=== PATIENT | male | born 1955 | race Caucasian/White ===

== ENCOUNTER 2020-03-29 08:03 | Day surgery (SDC) | payer MEDICARE, SELFPAY ==
[2020-03-24 11:24] VITALS: BMI 31.0
--- NOTE | 2020-03-28 10:23 | HO.ANESPROP2 ---
Documented by User: Anne Tabares 03/28/20 13:26 HPI - Anesthesia Eval Consult details Narrative: 65yo M for Colonoscopy Pt reports severe PONV after last colonoscopy. Done under CS. Rec'd 400 Fentanyl and 8 Versed. PMFSH Past Medical History Medical History Hyperlipidemia Seasonal allergies Surgical History Surgical History History of back surgery History of bilateral carpal tunnel release Hx of colonoscopy Hx of knee surgery Social History Social History Are you a primary palliative care nurse to a significant other at home: No Do you presently have visiting nurse or other home services: No Smoking Status: Former smoker Smoking Quit Date: In his 20s Second Hand Smoke Exposure: No Use of substances other than those prescribed or required for medical reasons: No Have you been hit, kicked, punched, or otherwise hurt by someone within the past year? If so, by whom?: No Advance Directives: No Advance Directives Information Provided: No Advance Directives on File: No Recently lost weight without trying: No Meds Allergies Allergy/AdvReac Type Severity Reaction Status Date / Time fentanyl AdvReac Nausea and Verified 03/24/20 11:21 Vomiting meperidine [From Demerol] AdvReac Nausea and Verified 03/24/20 11:21 Vomiting Home Medications Medication Instructions Recorded Confirmed Type aspirin [Aspir-81] 81 mg PO DAILY 03/24/20 03/24/20 History lactobacillus combination no.4 mmu cells PO DAILY 03/24/20 History [Probiotic] simvastatin 20 mg PO DAILY 03/24/20 03/24/20 History Exam Exam Date and Time: March 28, 2020 1023 Height,Weight and Vital Signs: Height 5 ft 7.5 in Weight 91.172 kg Assessment and Plan Final Anesthetic Review Final Preanesthetic Review: Consent Obtained/Reviewed Documented by User: Carito Mariscal 03/29/20 09:43 PMFSH Past Medical History Medical History Hyperlipidemia Seasonal allergies Surgical History Surgical History History of back surgery History of bilateral carpal tunnel release Hx of colonoscopy Hx of knee surgery Social History Social History Are you a primary palliative care nurse to a significant other at home: No Do you presently have visiting nurse or other home services: No Smoking Status: Former smoker Smoking Quit Date: In his 20s Second Hand Smoke Exposure: No Use of substances other than those prescribed or required for medical reasons: No Have you been hit, kicked, punched, or otherwise hurt by someone within the past year? If so, by whom?: No Advance Directives: No Advance Directives Information Provided: No Advance Directives on File: No Recently lost weight without trying: No Meds Allergies Allergy/AdvReac Type Severity Reaction Status Date / Time fentanyl AdvReac Nausea and Verified 03/24/20 11:21 Vomiting meperidine [From Demerol] AdvReac Nausea and Verified 03/24/20 11:21 Vomiting Home Medications Medication Instructions Recorded Confirmed Type aspirin [Aspir-81] 81 mg PO DAILY 03/24/20 03/24/20 History lactobacillus combination no.4 mmu cells PO DAILY 03/24/20 History [Probiotic] simvastatin 20 mg PO DAILY 03/24/20 03/24/20 History Exam Airway Mallampati Class: I TM Dist: >3cm Neck ROM: Full Heart: RRR Lungs: CTA BL Assessment and Plan Assessment Anesthesia Assessment: Anesthesia Plan Discussed and Chart Reviewed Final Anesthetic Review NPO: Yes ASA Class: II Final Preanesthetic Review: Meds/Allgs Chart Reviewed and Consent Obtained/Reviewed Patient Risk: Intermediate Procedure Risk: Intermediate Anesthetic Plan Anesthetic Plan: MAC: Disposition: Standard PACU
[2020-03-29] MEDS: Lactated Ringers 1,000 ML 100 ML IVCONT (08:52)
[2020-03-29 09:00] VITALS: BP 123/81; PULSE 69; RESP 18; TEMP 35.9; O2SAT 95
--- NOTE | 2020-03-29 10:48 | PM.OP ---
Brief Operative Note Date of Service: 03/29/20 Pre-op diagnosis: Screening, Family history of colon cancer Post-op diagnosis: other (Diverticulosis, Internal hemorrhoids) Procedure: Colonoscopy to cecum and TI Surgeon: Marbin Garcia Anesthesia: MAC Estimated blood loss (mL): 0 Pathology: none sent Condition: stable Disposition: PACU
[2020-03-29 10:51] VITALS: BP 112/72; PULSE 71; RESP 16; TEMP 37; O2SAT 96
[2020-03-29 11:06] VITALS: BP 113/76; PULSE 60; RESP 18; O2SAT 100
[2020-03-29] MEDS: ondansetron HCL 4 MG/2 ML VIAL IVPUSH (11:09)
[2020-03-29 11:21] VITALS: BP 125/75; PULSE 57; RESP 20; O2SAT 97
[2020-03-29 11:37] VITALS: BP 127/78; PULSE 59; RESP 20; TEMP 36.9; O2SAT 98
--- NOTE | 2020-03-29 11:56 | HO.POSTANES ---
Post Anesthesia Evaluation Post Anesthesia Evaluation Vital Signs: Vital Signs Temp Pulse Resp BP Pulse Ox 03/29/20 11:37 98.5 F 59 20 127/78 98 03/29/20 11:21 57 20 125/75 97 03/29/20 11:06 60 18 113/76 100 03/29/20 10:51 98.6 F 71 16 112/72 96 03/29/20 09:00 96.7 F L 69 18 123/81 95 Anesthesia: Monitored Mental Status: Awake Pain Control: Satisfactory Nausea/Vomiting: None Hydration: Adequate Anesthesia-Related Issues: No Anes. Related Issues
--- NOTE | 2020-03-29 12:23 | OP_ITS ---
SURGEON: Marbin Garcia MD INDICATIONS: The patient presents for evaluation of colorectal cancer screening and family history of colon cancer. Full consent obtained from him for this, including risks of bleeding and perforation. PREOPERATIVE DIAGNOSIS: Colorectal cancer screening and family history of colon cancer. POSTOPERATIVE DIAGNOSIS: Colorectal cancer screening and family history of colon cancer, diverticulosis, and internal hemorrhoids. PROCEDURE PERFORMED: Colonoscopy to the cecum and terminal ileum. ESTIMATED BLOOD LOSS: COMPLICATIONS: ANESTHESIA: Monitored anesthesia care. ASSISTANTS: SPECIMENS: DESCRIPTION OF PROCEDURE: The patient was placed in the left lateral decubitus position. The digital rectal exam revealed no abnormalities. The Olympus video pediatric colonoscope was then entered into the rectum and advanced easily to the cecum. Once in the cecum, identified normal-appearing cecal pouch at the appendiceal orifice and a normal-appearing ileocecal valve. The terminal ileum was cannulated and appeared normal. Scope was withdrawn back in the colon. The entire cecum and ileocecal valve appeared normal. The scope was slowly withdrawn, assessing all mucosal surfaces carefully. Preparation was excellent. I did not visualize any sign of polyps, colitis, nor angiodysplasia. There was a moderate amount of sigmoid diverticulosis. In the rectum, scope was retroflexed visualizing small internal hemorrhoids, but no other pathology. The rectal mucosa appeared normal. The scope was straightened and withdrawn from the patient. He tolerated the procedure well and was returned to the recovery area in stable condition. IMPRESSION: 1. Diverticulosis. 2. Internal hemorrhoids. PLAN: Given the patient's negative exam and family history of colon cancer in his father. I would recommend a followup colonoscopy in 5 years for further screening and surveillance. He was advised they could resume aspirin today. He will otherwise see me on a p.r.n. basis. This has been discussed with his . MD SANDRA Yu/STEPHANY / [id number]
== END 2020-03-29 12:00 | disposition home or self-care (01) ==
PROVIDERS: PCP Internal Medicine; Visit Provider Internal Medicine
PROC: 0DJD8ZZ Inspection of Lower Intestinal Tract, Via Natural or Artificial Opening Endoscopic (ICD-10-PCS; CPT 45378; principal; 2020-03-29 09:30)
DX: Z12.11 Encounter for screening for malignant neoplasm of colon (principal); K57.30 Diverticulosis of large intestine without perforation or abscess without bleeding; K64.8 Other hemorrhoids; Z80.0 Family history of malignant neoplasm of digestive organs
CPT/HCPCS: G0105; J2405

== ENCOUNTER → 2022-02-08 08:54 | Outpatient (BNVA) | payer MEDICARE, SELFPAY | PROVIDERS: PCP Internal Medicine; Visit Provider Urology | DX: R97.20 Elevated prostate specific antigen [PSA] (principal); N40.1 Benign prostatic hyperplasia with lower urinary tract symptoms; N13.8 Other obstructive and reflux uropathy; E78.5 Hyperlipidemia, unspecified; Z80.42 Family history of malignant neoplasm of prostate | CPT/HCPCS: 51798; 99202 ==

== ENCOUNTER 2022-02-18 07:54 | Outpatient (REF) | payer MEDICARE, SELFPAY ==
[2022-02-23 13:06] LABS: PSA, Ultra Sensitive 3.97 ng/mL
== END 2022-02-18 07:55 | disposition home or self-care (01) ==
LOC: HO.10HDL 07:54
PROVIDERS: Visit Provider Urology
DX: Z12.5 Encounter for screening for malignant neoplasm of prostate (principal); R97.20 Elevated prostate specific antigen [PSA]; N40.1 Benign prostatic hyperplasia with lower urinary tract symptoms
CPT/HCPCS: 36415; 84153

== ENCOUNTER → 2022-02-22 10:41 | Outpatient (BNVA) | payer MEDICARE, SELFPAY | PROVIDERS: PCP Internal Medicine; Visit Provider Urology | DX: R97.20 Elevated prostate specific antigen [PSA] (principal); N40.1 Benign prostatic hyperplasia with lower urinary tract symptoms; N13.8 Other obstructive and reflux uropathy; Z80.42 Family history of malignant neoplasm of prostate | CPT/HCPCS: 99212 ==

== ENCOUNTER → 2022-03-01 13:15 | Outpatient (BNVA) | payer MEDICARE, SELFPAY | PROVIDERS: Visit Provider Urology | DX: R97.20 Elevated prostate specific antigen [PSA] (principal); N40.0 Benign prostatic hyperplasia without lower urinary tract symptoms | CPT/HCPCS: Q3014 ==

== ENCOUNTER 2022-03-11 07:26 | Outpatient (REF) | payer MEDICARE, SELFPAY ==
[2022-03-11 08:01] VITALS: BMI 29.2
[2022-03-11 08:02] VITALS: BP 154/78; PULSE 76; RESP 16; TEMP 36.4; O2SAT 96
[2022-03-11 08:40] VITALS: BP 118/75; PULSE 82; RESP 16; O2SAT 97
--- NOTE | 2022-03-11 09:11 | W.PM.OPN ---
Operative Note Operative Note Date of Service: 03/11/22 Narrative: PreOperative Diagnosis:? ? Elevated PSA Post Operative Diagnosis:??Elevated PSA Procedure:?1. Transrectal ultrasound guided biopsy of the prostate 12 core 2. Transrectal ultrasound measurement of prostate 3. Transrectal ultrasound guided pudendal nerve block Surgeon:?Dr Candice Raymond Anesthesia:? Local Indications for procedure: Elevated PSA Procedure:After informed consent was verified the patient was brought into the procedure room and placed on the procedure table in left lateral position. Patient identity confirmed. Preoperative antibiotics confirmed. Safety pause time-out performed. Digital rectal exam performed to dilate rectal sphincter, iodine mixed with lubricant jelly 30 cc placed per rectum. Ultrasound probe was placed per rectum. The prostate was visualized. The prostate was measured height 3.51 cm, width 5.51 cm, length 4.51 cm with a volume of 45.7mL. An ultrasound guided pudendal nerve block was performed using 10 cc of 1% lidocaine a 12 core biopsy was performed from the left base, left mid, left apex and right base, mid, apex; 2 biopsies from each section. The ultrasound probe was removed and digital palpation of the prostate for 60 seconds for hemostasis was performed. The patient tolerated the procedure well. The patient was able to ambulate and use the bathroom after 5 minutes. The patient is instructed to complete his antibiotics and to call for any concerns. Complications: None
== END 2022-03-11 07:27 | disposition home or self-care (01) ==
LOC: HO.MS 07:26
PROVIDERS: PCP Internal Medicine; Visit Provider Urology
PROC: (CPT 55700; principal; 2022-03-11 08:00)
DX: R97.20 Elevated prostate specific antigen [PSA] (principal); Z80.42 Family history of malignant neoplasm of prostate; N40.1 Benign prostatic hyperplasia with lower urinary tract symptoms; N39.43 Post-void dribbling; E78.5 Hyperlipidemia, unspecified; J30.2 Other seasonal allergic rhinitis; Z79.899 Other long term (current) drug therapy; Z88.8 Allergy status to other drugs, medicaments and biological substances
CPT/HCPCS: 55700; 76942; 88305; 88344

== ENCOUNTER → 2022-03-20 08:31 | Outpatient (BNVA) | payer MEDICARE, SELFPAY | PROVIDERS: PCP Internal Medicine; Visit Provider Urology | DX: R97.20 Elevated prostate specific antigen [PSA] (principal); N40.1 Benign prostatic hyperplasia with lower urinary tract symptoms | CPT/HCPCS: Q3014 ==

== ENCOUNTER 2022-08-19 08:50 | Outpatient (REF) | payer MEDICARE, SELFPAY | END 2022-08-19 08:51 | disposition home or self-care (01) | LOC: HO.10HDL 08:50 | PROVIDERS: Visit Provider Urology | DX: Z12.5 Encounter for screening for malignant neoplasm of prostate (principal); N40.1 Benign prostatic hyperplasia with lower urinary tract symptoms; R97.20 Elevated prostate specific antigen [PSA] | CPT/HCPCS: 36415; 84153 ==

== ENCOUNTER → 2022-08-26 08:25 | Outpatient (BNVA) | payer MEDICARE, SELFPAY | PROVIDERS: PCP Internal Medicine; Visit Provider Urology | DX: R97.20 Elevated prostate specific antigen [PSA] (principal); N40.0 Benign prostatic hyperplasia without lower urinary tract symptoms | CPT/HCPCS: 51798; 99212 ==

== ENCOUNTER 2023-02-17 08:04 | Outpatient (REF) | payer MEDICARE, SELFPAY ==
[2023-02-17 11:47] LABS: Prostate Specific Antigen 1.41 ng/mL (<0.05-4.0)
== END 2023-02-17 08:05 | disposition home or self-care (01) ==
LOC: HO.10HDL 08:04
PROVIDERS: Visit Provider Urology
DX: N40.1 Benign prostatic hyperplasia with lower urinary tract symptoms (principal); Z12.5 Encounter for screening for malignant neoplasm of prostate
CPT/HCPCS: 36415; 84153

== ENCOUNTER 2023-02-24 08:27 | Outpatient (AMB) | payer MEDICARE, SELFPAY ==
--- NOTE | 2023-02-24 08:09 | MHC.OFFVIS ---
Intake Intake Visit Reasons: 6m/PSA Intake Note: Patient is present for PSA medications: Finasteride (Tadalafil is not working for patient. 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: No Accompanied by: Self / Same As Patient Allergies fentanyl Adverse Reaction (Verified 02/24/23 08:30) Nausea and Vomiting meperidine [From Demerol] Adverse Reaction (Verified 02/24/23 08:30) Nausea and Vomiting Medication List - Last Reconciled 02/24/23 by Candice Raymond MD aspirin 81 mg PO DAILY finasteride (Proscar) 5 mg PO DAILY PRN 90 days lactobacillus combination no.4 (Probiotic) mmu cells PO DAILY meclizine 25 mg PO TID PRN simvastatin 20 mg PO DAILY HPI HPI Comments History of Present Illness Details Donn is a 67-year-old male who presents to the office for discussion of PSA test results. 02/24/2023-- He is followed today for elevated PSA and BPH. He was last seen by me on 08/26/2022. He has a family history of prostate cancer. His father was diagnosed with prostate cancer at the age of 70s. Patient has had prostate biopsy done on 03/11/22 which was benign. I reviewed the PSA results from revealed 2.30 ng/mL, and from 01/21/2023 revealed 1.4 ng/mL. He states that he has been compliant with Proscar daily. He stopped taking tadalafil, because he states that when he is on medication he was getting aura . He states that his urinary flow is good. He is getting up 1 time at night to urinate. Review of chart: Review of PSA: PSA on 02/18/2022 is 3.97. PSA results. PSA 11/21/2021 results 3.98. The patient had prostate biopsy on 03/11/22-- no malignancy reported. 02/24/23: Evaluation today--UA--Evaluation today-- Blood: negative, leukocytes-- negative. Bladder scan PVR: 0 mL. 02/24/2023: Plan: Will continue Proscar daily. Follow-up in 1 year PSA prior. [facility] Medical History Hyperlipidemia Seasonal allergies Surgical History History of back surgery History of bilateral carpal tunnel release Hx of knee surgery Hx of colonoscopy Social History Are you a primary customer care associate to a significant other at home: No Do you presently have visiting nurse or other home services: No Second Hand Smoke Exposure: No Review of Systems Const All systems reviewed & are unremarkable except as noted in HPI and below Reports no additional complaints Eyes Reports no additional complaints ENT Denies neck pain Card Denies leg edema Resp Denies cough GI Denies constipation Musc Reports no additional complaints and Denies neck pain Skin/Breast Denies rash and Denies unusual bruising Neuro Reports no additional complaints Psych Reports no additional complaints Endo Reports no additional complaints Srinivas/Lymph Reports no additional complaints Aller/Immun Reports no additional complaints Office Procedures Post Void Residual Post Residual Void Post Void Residual (PVR): 0 81835-Hwpy Void Residual by ultrasound Results AMB Urinalysis, Automated UA Leukoctes 0 [place]/uL Last Edit by ROMULO Bruno on 02/24/23 08:43 UA Nitrite Negative Last Edit by ROMULO Bruno on 02/24/23 08:43 UA Urobilinogen 0.2 mg/dL Last Edit by ROMULO Bruno on 02/24/23 08:43 UA Protein 0 mg/dL Last Edit by ROMULO Bruno on 02/24/23 08:43 UA pH 6.0 Last Edit by ROMULO Bruno on 02/24/23 08:43 UA Blood 0 [place]/uL Last Edit by ROMULO Bruno on 02/24/23 08:43 UA Specific [place] 1.010 Last Edit by ROMULO Bruno on 02/24/23 08:43 UA Ketone Negative Last Edit by ROMULO Bruno on 02/24/23 08:43 UA Bilirubin 0 mg/dL Last Edit by ROMULO Bruno on 02/24/23 08:43 UA Glucose 0 mg/dL Last Edit by ROMULO Bruno on 02/24/23 08:43 Results Reviewed Results Reviewed: Laboratory Last Values Urine pH (Auto) 6.0 02/24/23 08:41 Specific [place] (Auto) 1.010 02/24/23 08:41 Urine Protein (Auto) 0 mg/dL 02/24/23 08:41 Glucose (UA)(Auto) 0 mg/dL 02/24/23 08:41 Urine Ketones (Auto) Negative 02/24/23 08:41 Urine Blood (Auto) 0 [place]/uL 02/24/23 08:41 Urine Nitrite (Auto) Negative 02/24/23 08:41 Urine Bilirubin (Auto) 0 mg/dL 02/24/23 08:41 Urine Urobilinogen (Auto) 0.2 mg/dL 02/24/23 08:41 Leukocyte Esterase (Auto) 0 [place]/uL 02/24/23 08:41 Assessment & Plan Assessment & Plan (1) Elevated PSA: Code(s): R97.20 - Elevated prostate specific antigen [PSA] (2) BPH loc w urin obs/LUTS: Code(s): N40.1 - Benign prostatic hyperplasia with lower urinary tract symptoms (3) Family history of prostate cancer in father: Code(s): Z80.42 - Family history of malignant neoplasm of prostate Plan Will continue Proscar daily. Follow-up in 1 year PSA prior. Orders: Orders Prostate Specific Antigen 02/17/23 N40.1 - Benign prostatic hyperplasia with lower urinary tract symptoms AMB Urinalysis Automated Today Z13.9 - Encounter for screening, unspecified PSA,Total (Free>4and<10) 10 Months N40.1 - Benign prostatic hyperplasia with lower urinary tract symptoms, R97.20 - Elevated prostate specific antigen [PSA], Z80.42 - Family history of malignant neoplasm of prostate AMB Post Void Residual by ultrasound Today N39.8 - Other specified disorders of urinary system Medications: Changed From finasteride (Proscar) 5 mg PO DAILY 90 days PRN 90 tabs 3RF prostate To finasteride (Proscar) 5 mg PO DAILY 90 days 90 tabs 3RF prostate Patient Instructions: The patient had an opportunity to ask questions regarding treatment plan. All questions were answered. Imaging, Laboratory studies and physical exam results were discussed and reviewed in detail. No major barriers to understanding were identified. The patient expressed understanding and agreement with the above treatment plan. The patient is aware they should contact our office by phone for worsening of their current condition or the appearance of new symptoms. Compliance is encouraged with any medications and followup testing that is ordered. It is a privilege to be allowed the opportunity to participate in the urologic care of your patient. If you have any questions or concerns regarding treatment for the above conditions please do not hesitate to contact me. The office telephone contact is [phone]. This note is constructed in part using voice recognition software. While every effort has been made to ensure accuracy head of digital advertising & integration errors may have been included. Yours sincerely, Candice Raymond MD Coding Level of Care Code Est Pt Level 3 (10341) Diagnoses Elevated PSA R97.20 BPH loc w urin obs/LUTS N40.1 Family history of prostate cancer in father Z80.42 CPT Codes Post Residual Void - PVR CPT Code: 93472-Pbzo Void Residual by ultrasound ([id number])
== END 2023-02-24 08:52 | disposition home or self-care (01) ==
PROVIDERS: Visit Provider Urology
DX: R97.20 Elevated prostate specific antigen [PSA] (principal); N40.1 Benign prostatic hyperplasia with lower urinary tract symptoms; Z80.42 Family history of malignant neoplasm of prostate; Z13.9 Encounter for screening, unspecified
CPT/HCPCS: 99213

== ENCOUNTER → 2023-02-24 08:27 | Outpatient (BNVA) | payer MEDICARE, SELFPAY | PROVIDERS: Visit Provider Urology | DX: R97.20 Elevated prostate specific antigen [PSA] (principal); N40.1 Benign prostatic hyperplasia with lower urinary tract symptoms; N13.8 Other obstructive and reflux uropathy; Z80.42 Family history of malignant neoplasm of prostate | CPT/HCPCS: 51798; 81003; 99212 ==

== ENCOUNTER 2024-03-06 09:22 | Outpatient (AMB) | payer MEDICARE, SELFPAY ==
--- NOTE | 2024-03-06 09:23 | AM.OFFWIN_ITS ---
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 Patient was cutting meat with a sharp knife about an hour ago. The laceration is Deep and bleeding. Patient will receive Tdap. PFSH Medical History Hyperlipidemia Seasonal allergies Surgical History History of back surgery History of bilateral carpal tunnel release Hx of knee surgery Hx of colonoscopy Social History Are you a primary farm or ranch animal caretaker to a significant other at home: No Do you presently have visiting nurse or other home services: No Patient Tobacco Use Status: Never used Tobacco Second Hand Smoke Exposure: No Review of Systems Const All systems reviewed & are unremarkable except as noted in HPI and below Physical Exam Vital Signs: Last Vital Signs Pulse 72 03/06/24 09:29 BP 140/80 H 03/06/24 09:29 Pulse Ox 98 03/06/24 09:29 Oxygen Delivery Method Room Air 03/06/24 09:29 Const General: cooperative and no acute distress Orientation/consciousness: patient oriented x3 Skin Other: 2 cm laceration left Pinky, deep to the bone. Neuro General: patient oriented x3 Extrem Left upper extremity: hand Hand/finger images: 2 1. 2 cm laceration left Pinky, deep to the bone. 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 Washed the wound with saline and wrapped with Kerlix roll T-dap given to patient today. Coding Level of Care Code Est Pt Level 3 (11913) Diagnoses Deep laceration of finger S61.219A Time Spent (min) 15
[2024-03-06 09:29] VITALS: BP 140/80; PULSE 72; O2SAT 98
== END 2024-03-06 10:11 | disposition home or self-care (01) ==
PROVIDERS: PCP Internal Medicine; Visit Provider Nurse Practitioner Family
DX: S61.217A Laceration without foreign body of left little finger without damage to nail, initial encounter (principal)

== ENCOUNTER → 2024-03-06 09:22 | Outpatient (BNVA) | payer MEDICARE, SELFPAY | PROVIDERS: PCP Internal Medicine; Visit Provider Nurse Practitioner Family ==

== ENCOUNTER 2024-03-06 09:59 | Emergency (ER) | payer MEDICARE, SELFPAY ==
--- NOTE | ~2024-03-06 | XR_ITS ---
EXAMINATION: XR FINGER, LEFT CLINICAL INFORMATION: Fifth digit laceration. COMPARISON: Left hand radiograph dated 07/09/2016. TECHNIQUE: PA view of the left hand as well as oblique and lateral views of the left small finger. FINDINGS: Dorsal and ulnar soft tissue defect, consistent with laceration. Along the radial side of the fifth proximal phalanx there is a tiny linear density measuring up to 0.2 cm which could represent a small foreign body. No acute fracture or dislocation. No concerning lytic or blastic osseous lesion. Severe joint space narrowing with marginal osteophytes at the triscaphe and first carpometacarpal joint with more mild osteoarthritis throughout the metacarpophalangeal and interphalangeal joints. XR/XR finger LT min 2V IMPRESSION: 1. Soft tissue laceration along the dorsal and ulnar aspect of the fifth proximal phalanx. Tiny linear density measuring up to 0.2 cm which could represent a small foreign body. 2. No acute fracture or dislocation. 3. 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 Electronically signed by: Rupert Guerrero MD 03/06/2024 11:00 AM [facility]
[2024-03-06 10:07] VITALS: BP 134/77; PULSE 75; RESP 16; TEMP 36.9; O2SAT 96; BMI 31.0
--- NOTE | 2024-03-06 10:44 | ED_ITS ---
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 He is not on AC. He was initially evaluated at . His tetanus was updated there and he was sent to the ED for imaging and laceration repair. He denies any pain at present. Denies difficulty moving the finger. Bleeding controlled on arrival to ED. No other concerns at present. Related Data Home Medications ?Medication ?Instructions ?Recorded ?Confirmed aspirin 81 mg tablet,delayed 81 mg PO DAILY 03/24/20 02/24/23 release lactobacillus combination no.4 3 mmu cells PO DAILY 03/24/20 02/24/23 billion cell capsule (Probiotic) simvastatin 20 mg tablet 20 mg PO DAILY 03/24/20 02/24/23 Previous Rx's ?Medication ?Instructions ?Recorded finasteride 5 mg tablet (Proscar) 5 mg PO DAILY prostate 90 days #90 02/24/23 tabs Allergies Allergy/AdvReac Type Severity Reaction Status Date / Time fentanyl AdvReac Nausea and Verified 03/06/24 10:09 Vomiting meperidine [From Demerol] AdvReac Nausea and Verified 03/06/24 10:09 Vomiting Review of Systems Review of Systems: Constitutional: No fever, chills, fatigue, night sweats, weight changes ENT/Mouth: No ear pain, hearing loss, nasal congestion, sinus pain, rhinorrhea, sore throat Eyes: No eye pain, swelling, redness, vision changes, discharge Cardio: No chest pain, palpitations, [place], orthopnea, peripheral edema Pulm: No SOB, cough, sputum, wheezing, dyspnea, hemoptysis GI: No nausea, vomiting, hematemesis, abdominal pain, diarrhea, constipation, hematochezia, melena : No irregular bleeding, dysuria, frequency, urgency, hesitancy, hematuria, flank pain, urinary flow changes, urinary incontinence or retention MSK: No back pain, neck pain, joint pain, myalgias Skin: No lesions, rashes, +laceration to left 5th digit Neuro: No weakness, numbness, paresthesias, LOC, dizziness, headache Psych: No anxiety/panic, depression, SI/HI, AH/VH All other systems reviewed and are negative. [facility] Past Medical History Attestation statement: The following information was validated with the patient. Source: old records reviewed and nursing notes reviewed Medical History Hyperlipidemia Seasonal allergies Surgical History History of back surgery History of bilateral carpal tunnel release Hx of knee surgery Hx of colonoscopy Social History Social History Are you a primary healthcare account manager to a significant other at home: No Do you presently have visiting nurse or other home services: No Patient Tobacco Use Status: Never used Tobacco Second Hand Smoke Exposure: No Advance Directives: No Advance Directives Information Provided: Yes Physical Exam Vital Signs: Vital Signs: Last Vital Signs Temp 98.5 F 03/06/24 11:33 Pulse 75 03/06/24 11:33 Resp 16 03/06/24 11:33 BP 134/77 03/06/24 11:33 Pulse Ox 96 03/06/24 11:33 O2 Del Method Room Air 03/06/24 11:33 BMI result Body Mass Index 31.0 vitals stable General: Well appearing, in no acute distress. Skin: see below Head: Normocephalic, atraumatic. EENT: Hearing is intact b/l. Conjunctiva clear.PERRLA. EOM intact. Moist mucous membranes.? Cardiac: Chest wall symmetric. RRR. No MRG. No JVD. Lungs: Normal respiratory effort without accessory muscle use Ext: +2 cm linear superficial laceration noted to ulnar/ dorsal aspect of left 5th PIP. FROM to 5th MCP/ PIP/ DIP. no active bleeding. no FB. no visible tendon/ ligament/ bone. strength intact. finger to thumb opposition intact. production material coordinator strength intact. 2+ radial /ulnar pulse intact. sensation intact. Neuro: AOx3. Normal speech. Ambulating with steady gait. Psych: Appropriate mood and affect. Responds appropriately to questions. Course Course Course Narrative: xr left 5th digit does not show fracture. it shows possible 0.2 cm linear density. wound irrigated extensively with iodine/saline. no FB appreciated. 6 sutures placed after digital block. patient tolerated procedure well. bleeding controlled. advised to return in 10-14 days for suture removal. Patient has remained stable throughout ED visit today. Discussed worrisome signs and sympto ms and when to return to the ED. All questions answered at this time. Patient is agreeable with disposition and stable for discharge. 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 Vital signs stable. afebrile. he is nontoxic appearing and in NAD. on exam of left hand, there is a 2 cm linear superficial laceration noted to ulnar/ dorsal aspect of left 5th PIP. FROM to 5th MCP/ PIP/ DIP. no active bleeding. no FB. no visible tendon/ ligament/ bone. strength intact. finger to thumb opposition intact. production material coordinator strength intact. 2+ radial /ulnar pulse intact. sensation intact. Differential diagnosis includes abrasion, laceration, retained FB, fracture. no concern for ligament/ tendon injury. Plan for imaging, laceration repair, re-evaluation. Differential Diagnosis Differential Diagnoses: The differential diagnosis associated with the presentation includes as above. Admission/Observation not indicated. Independent Interpretation I performed an independent interpretation of an: Plain X-Ray Interpretation: xr left 5th digit without fracture Radiology Impression Discussion of test interpretation with radiology: I have reviewed the radiologist's reading. Radiologist Impression: XR finger LT min 2V IMPRESSION: 1. Soft tissue laceration along the dorsal and ulnar aspect of the fifth proximal phalanx. Tiny linear density measuring up to 0.2 cm which could represent a small foreign body. 2. No acute fracture or dislocation. 3. 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 Electronically signed by: Rupert Guerrero MD 03/06/2024 11:00 AM [facility] [place] External Record Review External record reviewed: Inpatient record Prescription Management I considered prescription management with: Pain Medication Social Determinants Patient?s care significantly limited by Social Determinants of Health including: Other Social Determinant of Health Procedures Laceration Laceration 1: Site: hand Side (If applicable): left Size (cm): 2 Description: linear Depth: simple, single layer Local Anesthetic: lidocaine 1% Amount of anesthesia used (mL): 10 Pre-repair: wound explored, irrigated extensively and deep structures intact Skin layer closed with: nylon Size (cm): 4-0 Number of sutures: 6 Technique: simple, interrupted Nerve Block Nerve Block 1: Time out performed: Yes Local Anesthetic: lidocaine 1% Amount of anesthesia used (mL): 10 Nerve Blocks: digital Procedure Successful: Yes Patient Tolerated Procedure: well and no complications Complications: none Critical Care Time Critical Care Time Critical Care Time: No Discharge Plan Discharge Clinical Impression: Laceration of finger of left hand Qualifiers: Encounter type: initial encounter Finger: little finger Damage to nail status: without damage Patient Disposition: Home, Self-Care Instructions: Care For Your Stitches (ED), Laceration (ED) Additional Instructions: You have been evaluated in the Emergency Department today for a laceration to your left pinky finger. Your laceration was repaired in the ED with 6 sutures.? Please keep the area surrounding the laceration clean and dry. Please keep the area out of the sunlight for the next 6 months to help prevent scarring.? If you develop redness or swelling at the site of your laceration please come back to the ER for a wound check. I recommend you take 600mg ibuprofen every 6 hours or tylenol 650mg every 6 hours as needed for pain. If needed, you can alternate these medications so that you take one medication every 3 hours. For example, at noon take ibuprofen, then at 3pm take Tylenol, then at 6pm take ibuprofen. Please follow up with your primary care physician in 10-14 days for suture removal. You can also return to the ER or another urgent care facility for this service. Return to the Emergency Department if you experience discharge from your laceration, redness around your laceration, warmth around your laceration, fever, vomiting, numbness, tingling, or any other concerning symptoms. In the case of an emergency call 911. Prescriptions: No Action aspirin [Aspir-81] 81 mg Tablet,Delayed Release (Dr/Ec) 81 mg PO DAILY simvastatin 20 mg Tablet 20 mg PO DAILY Probiotic 3 billion cell Capsule PO DAILY finasteride [Proscar] 5 mg tablet 5 mg PO DAILY 90 Days Qty: 90 3RF Referrals: Darryl Tompkins MD [Primary Care Provider] - Interventions: ED Discharge Assessment Last Done: 03/06/24 11:33 Discharge Date/Time: 03/06/24 11:34 Print Language: Urdu
[2024-03-06] MEDS: Lidocaine HCl 1 % MPF 5 ML VIAL INFILTRATI ×2 (10:48)
--- NOTE | 2024-03-06 11:32 | PC.NURSE ---
Wound soaked prior to suturing, pt tolerating suturing well. Education given on DC sutures wrapped in clean dry dressing
[2024-03-06 11:33] VITALS: BP 134/77; PULSE 75; RESP 16; TEMP 36.9; O2SAT 96
== END 2024-03-06 11:34 | disposition home or self-care (01) ==
PROVIDERS: Emergency Provider Emergency Medicine; PCP Internal Medicine
DX: S61.217A Laceration without foreign body of left little finger without damage to nail, initial encounter (principal); W26.0XXA Contact with knife, initial encounter; Y93.G1 Activity, food preparation and clean up; Y92.000 Kitchen of unspecified non-institutional (private) residence as the place of occurrence of the external cause; Y99.9 Unspecified external cause status; Z23 Encounter for immunization
CPT/HCPCS: 12001; 73140; 90471; 90715; 99212; 99284; J2003

== ENCOUNTER 2024-03-17 13:08 | Outpatient (AMB) | payer MEDICARE, SELFPAY ==
--- NOTE | 2024-03-17 10:45 | A.OFFVIS_ITS ---
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 The patient had a prostate biopsy 03/11/2022 prostate biopsies benign. He has no complaints regarding urination. Since being on the Proscar his PSA has decreased to within the normal range he had a PSA done 01/06/2024--resulting 0.63 ng/mL. I have discussed options to discontinue the Proscar versus decreasing to Proscar 3 times a week, and to continue to monitor his PSA. The patient is agreeable to discontinue the Proscar. Will check a PSA in 6 months. Review of chart: 02/24/2023--He is followed today for elevated PSA and BPH. He was last seen by me on 08/26/2022. He has a family history of prostate cancer. His father was diagnosed with prostate cancer at the age of 70s. Patient has had prostate biopsy done on 03/11/22 which was benign. I reviewed the PSA results from revealed 2.30 ng/mL, and from 01/21/2023 revealed 1.4 ng/mL. He states that he has been compliant with Proscar daily. He stopped taking tadalafil, because he states that when he is on medication he was getting aura . He states that his urinary flow is good. He is getting up 1 time at night to urinate. PSA on 02/18/2022 is 3.97. PSA results. PSA 11/21/2021 results 3.98. The patient had prostate biopsy on 03/11/22-- no malignancy reported. [facility] Medical History Hyperlipidemia Seasonal allergies Surgical History History of back surgery History of bilateral carpal tunnel release Hx of knee surgery Hx of colonoscopy Social History Are you a primary medical care manager to a significant other at home: No Do you presently have visiting nurse or other home services: No Patient Tobacco Use Status: Never used Tobacco Second Hand Smoke Exposure: No Review of Systems Const All systems reviewed & are unremarkable except as noted in HPI and below Reports no additional complaints Eyes Reports no additional complaints ENT Reports no additional complaints Card Reports no additional complaints Resp Reports no additional complaints GI Reports no additional complaints Reports as per HPI Musc Reports no additional complaints Skin/Breast Reports system reviewed and no additional complaints, except as documented Neuro Reports no additional complaints Psych Reports no additional complaints Endo Reports no additional complaints Srinivas/Lymph Reports no additional complaints Aller/Immun Reports no additional complaints Telehealth Telehealth Telehealth Platform: Smart Checkout Location of provider rendering services: practice address Location of patient: address on file Patient Identification confirmed using: Name, : Yes Telehealth method: video Patient verbally consented to treatment: Yes Patient verbally consented to billing insurance company: Yes Patient informed of any privacy concerns related to visit: Yes Assessment & Plan Assessment & Plan (1) Elevated PSA: Code(s): R97.20 - Elevated prostate specific antigen [PSA] Category: Medical (2) BPH loc w urin obs/LUTS: Code(s): N40.1 - Benign prostatic hyperplasia with lower urinary tract symptoms Category: Medical (3) Family history of prostate cancer in father: Code(s): Z80.42 - Family history of malignant neoplasm of prostate Category: Medical Plan Prostate biopsy 02/2022- path benign. Since being on the Proscar his PSA has decreased to within the normal range he had a PSA done 01/06/2024--resulting 0.63 ng/mL. I have discussed options to discontinue the Proscar versus decreasing to Proscar 3 times a week, and to continue to monitor his PSA. The patient is agreeable to discontinue the Proscar. Will check a PSA in 6 months. Orders: Orders PSA,Total (Free>4and<10) 6 Months R97.20 - Elevated prostate specific antigen [PSA], Z80.42 - Family history of malignant neoplasm of prostate Medications: Discontinued finasteride (Proscar) Discontinued Reason: Doctor's Order 5 mg PO DAILY 90 days 90 tabs 3RF prostate Patient Instructions: The patient had an opportunity to ask questions regarding treatment plan. The patient expressed understanding and agreement with the above treatment plan. The patient is aware they should contact our office by phone for worsening of their current condition or the appearance of new symptoms. Compliance is encouraged with any medications and followup testing that is ordered. It is a privilege to be allowed the opportunity to participate in the urologic care of your patient. If you have any questions or concerns regarding treatment for the above conditions please do not hesitate to contact me. The office telephone contact is [phone]. This note is constructed in part using voice recognition software. While every effort has been made to ensure accuracy pneumatic tube operator errors may have been included. Yours sincerely, Candice Raymond MD Coding Level of Care Code Tele Est Pt Level 4 (78557) Diagnoses Elevated PSA R97.20 BPH loc w urin obs/LUTS N40.1 Family history of prostate cancer in father Z80.42
== END 2024-03-17 16:44 | disposition home or self-care (01) ==
LOC: HO.HUSH 13:08
PROVIDERS: PCP Internal Medicine; Visit Provider Urology
DX: R97.20 Elevated prostate specific antigen [PSA] (principal); N40.1 Benign prostatic hyperplasia with lower urinary tract symptoms; Z80.42 Family history of malignant neoplasm of prostate
CPT/HCPCS: 99214

== ENCOUNTER 2024-03-17 15:41 | Emergency (ER) | payer MEDICARE, SELFPAY ==
--- NOTE | 2024-03-17 16:41 | ED.SKABFB ---
HPI - Skin/Abscess/Foreign Bdy General Chief complaint: Wound/Laceration Stated complaint: suture removal Time Seen by Provider: 03/17/24 16:49 Source: patient, RN notes reviewed and old records reviewed Mode of arrival: ambulatory History of Present Illness ED Provider: Nancie Fernandez PA-C HPI narrative: 69-year-old male with no significant past medical history presenting to ED for suture removal from left 5th digit. Patient was evaluated in our ED on 03/06 after incident, 6 sutures were placed at that time. Denies complaints at present including pain, fever, chills, drainage from area, surrounding erythema. Related Data Home Medications ?Medication ?Instructions ?Recorded ?Confirmed aspirin 81 mg tablet,delayed 81 mg PO DAILY 03/24/20 03/17/24 release lactobacillus combination no.4 3 mmu cells PO DAILY 03/24/20 03/17/24 billion cell capsule (Probiotic) simvastatin 20 mg tablet 20 mg PO DAILY 03/24/20 03/17/24 Allergies Allergy/AdvReac Type Severity Reaction Status Date / Time fentanyl AdvReac Nausea and Verified 03/17/24 16:43 Vomiting meperidine [From Demerol] AdvReac Nausea and Verified 03/17/24 16:43 Vomiting Review of Systems Review of Systems: Yes all other systems are reviewed and are negative Constitutional: Constitutional: Reports as per [facility] Past Medical History Attestation statement: The following information was validated with the patient. Source: old records reviewed Medical History Hyperlipidemia Seasonal allergies Surgical History History of back surgery History of bilateral carpal tunnel release Hx of knee surgery Hx of colonoscopy Social History Social History Are you a primary animal care attendant to a significant other at home: No Do you presently have visiting nurse or other home services: No Patient Tobacco Use Status: Never used Tobacco Second Hand Smoke Exposure: No Advance Directives: No Advance Directives Information Provided: No Physical Exam Vital Signs: Vital Signs: Last Vital Signs Temp 97.0 F 03/17/24 16:42 Pulse 76 03/17/24 16:42 Resp 16 03/17/24 16:42 BP 137/91 H 03/17/24 16:42 Pulse Ox 97 03/17/24 16:42 O2 Del Method Room Air 03/17/24 16:42 BMI result Body Mass Index 30.8 Const: General: cooperative, healthy appearing and no acute distress Orientation/consciousness: patient oriented x3 Limitations: no limitations HEENT: Head: Yes normal to inspection and Yes atraumatic Ears: hearing grossly normal bilaterally General nose exam: Normal external nose present Face and sinus: Yes normal facial exam Eyes: General: appearance normal, both eyes and all related structures EOM: EOMs intact bilaterally Neck: Neck: Yes normal visual inspection and Yes no meningeal signs Resp: Effort & Inspection: normal respiratory effort and no respiratory distress Cardio: Rate: regular rate Skin: Other: + healing wound to left 5th digit with 6 sutures intact. No surrounding erythema. No dehiscence. No fluctuance/induration or drainage. Neuro: General: patient oriented x3, tone normal and no meningeal signs Cranial nerves: Yes CN's II-XII intact bilaterally Gait exam (Neuro): Normal gait present Extrem: General: Yes normal to inspection Medical Decision Making Medical Decision Making MDM Narrative: 69-year-old male with no significant past medical history presenting to ED for suture removal from left 5th digit. Patient was evaluated in our ED on 03/06 after incident, 6 sutures were placed at that time. On exam vital signs stable, NAD, nontoxic appearing, 6 sutures removed without complication. No dressing applied. Please refer to course for remaining clinical decision making, interpretation of labs/imaging results, and discussions with consultants and/or family members. Results discussed with patient including worrisome signs and symptoms and strict return precautions, and when to return to the emergency department. They verbalized understanding and feel safe for discharge at this time. Differential Diagnosis Differential Diagnoses: The differential diagnosis associated with the presentation includes As above External Record Review External record reviewed: Inpatient record, Office record, Outpatient record, Prior outpatient labs, Prior outpatient radiology, Primary care record and Outside ED record Tests considered The following testing was considered but not selected: As above Prescription Management I considered prescription management with: Pain Medication and Antibiotic Social Determinants Patient?s care significantly limited by Social Determinants of Health including: Other Social Determinant of Health Procedures Procedure Narrative Procedure Narrative: Suture removal: Six sutures removed without complication No dressing applied Discharge Plan Discharge Clinical Impression: Visit for suture removal Patient Disposition: Home, Self-Care Instructions: Stitches Removal (ED) Additional Instructions: Apply bacitracin or Neosporin at home You may apply anti scar cream like Mederma If area begins to look infected, is red, there is drainage, you have fever return to the ED Keep open to air if you are in clean environment Prescriptions: No Action aspirin [Aspir-81] 81 mg Tablet,Delayed Release (Dr/Ec) 81 mg PO DAILY simvastatin 20 mg Tablet 20 mg PO DAILY Probiotic 3 billion cell Capsule PO DAILY Referrals: Darryl Tompkins MD [Primary Care Provider] - 1 week Print Language: Barbadian
[2024-03-17 16:42] VITALS: BP 137/91; PULSE 76; RESP 16; TEMP 36.1; O2SAT 97; BMI 30.8
[2024-03-17 16:55] VITALS: BP 137/91; PULSE 76; RESP 16; TEMP 36.1; O2SAT 97
== END 2024-03-17 16:56 | disposition home or self-care (01) ==
PROVIDERS: Emergency Provider Emergency Medicine; PCP Internal Medicine
DX: Z48.02 Encounter for removal of sutures (principal); S61.217D Laceration without foreign body of left little finger without damage to nail, subsequent encounter; W45.8XXD Other foreign body or object entering through skin, subsequent encounter
CPT/HCPCS: 99282

== ENCOUNTER 2024-06-24 14:09 | Outpatient (REF) | payer MEDICARE, SELFPAY ==
--- OUTSIDE RECORDS SUMMARY | 2024-06-24 17:23 | XMS_ITS | Patient Health Record ---
Author Organization [facility] Address [address] [place] [address] Care Team Providers Care Carbonator Name Role Phone Leda BECK, Darryl Primary Care Provider Marbin Robin Unavailable [phone] Allergies Allergen (clinical drug ingredient) Drug/Non Drug Allergy documented on EMR Reaction Allergy Type Onset Date Status fentanyl Fentanyl (uncoded) Unknown Allergy A ctive trees,grasses ,mold ,lucero (uncoded) Unknown Allergy Active meperidine Demerol (uncoded) Unknown Allergy A ctive Reason For Referral No Information Medications Medication SIG (Take, Route, Fr equency, Duration) Notes Start Date End Date Status Probiotic - as directed Orally Active Simvastatin 20 MG TK 1 T PO Q 12 H Oral for 30 Active Aspirin 81 81 MG 1 tablet Orally Once a day for 30 day(s) Active Immunizations Vaccine Route Administration Date Status Comme nts Influenza Unknown 12/21/2019 Administered Problems Problem Type SNOMED Code ICD Code Onset Dates Problem Status W/U Status Risk Notes Problem Screening for malignant neoplasm of colon (697354815) Encounter for screening for malignant neoplasm of colon (Z12.11) Active confirmed Problem Preprocedural examination (084943769636631) Preprocedural examination (Z01.818) Active confirmed Problem Long-term current use of aspirin (972453080899105) Aspirin long-term use (Z79.82) Active confirmed Problem Family History of Cancer of Colon (Situation) (432861958) Family history of colon cancer (Z80.0) Active confirmed Plan Of Treatment Future Test Test Name Order Date COLONOSCOPY 08/02/2014 COLONOSCOPY 02/29/2020 Insurance Providers Payer Name Payer Address Payer Phone Subscriber Number Group Number Insured Name Patient Relationship to Insured Coverage Start Date Coverage End Date MEDICARE OF [place] [address] [place] [id number] LUZ MARINA SAUNDERS Self - patient is the insured MED[employer] ATT[employer] CLAIMS [address] [place] [address] [phone] [id number] LUZ MARINA SAUNDERS Self - patient is the insured Medical (General) History Medical History History ICD Code 03/24/2009 and 2004--negativ e colonoscopies except for diverticulosis and internal hemorrhoids; neg. colonoscopy in 09/2014 Denies [place],DM,CVA,Lung disease,renal dise ase Seasonal allergies Hyperlipidemia Surgical History Surgery Date(Month/Year) Knee surgery-both Carpal Tunnel surgery-bilateral Lower back surgery--Dr. Lang at [facility] y 2018
--- OUTSIDE RECORDS SUMMARY | 2024-06-24 17:23 | XMS_ITS | Clinical Summary ---
Author Organization [facility] ity Address [address] [place] [address] Care Team Providers Care Lime Burner Name Role Phone Darryl Tompkins MD Primary Care Provider [phone] Social History Tobacco Use Types Packs/Day Years Used Date Smoking Tobacco: Never Assessed Sex and Gender Information Value Date Recorded Sex Assigned at Not on file Legal Sex Male 7:51 AM EST Gender Identity Not on file Sexual Orientation Not on file Plan of Treatment Health Maintenance Due Date Last Done Comments DTaP,Tdap,and Td Vaccines (1 - Tdap) 1973 Pneumococcal Vaccine: 50+ Ye ars (1 of 1 - PCV) 02/03/2004 Zoster Vaccines (1 of 2) 02/03/2004 COVID-19 Vaccine ( - 2023-2 5 season) 2023 Influenza Vaccine (#1) 2023 RSV Immunization Patients 60 + Years Old (1 - 1-dose 75+ series) 2029 HIB Vaccines Aged Out No longer eligi ble based on patient's age to complete this topic HPV Vaccines Aged Out No longer eligi ble based on patient's age to complete this topic Hepatitis A Vaccines Aged Out No long er eligible based on patient's age to complete this topic Hepatitis B Vaccines Aged Out No long er eligible based on patient's age to complete this topic IPV Vaccines Aged Out No longer eligi ble based on patient's age to complete this topic MMR Vaccines Aged Out No longer eligi ble based on patient's age to complete this topic Meningococcal ACWY Vaccine Aged Out N o longer eligible based on patient's age to complete this topic Meningococcal B Vacine Aged Out No lo nger eligible based on patient's age to complete this topic RSV Immunization Patients Un simi 20 months Aged Out No longer eligible b ased on patient's age to complete this topic Varicella Vaccines Aged Out No longer eligible based on patient's age to complete this topic Care Teams Lime Burner Relationship Specialty Start Date End Date Darryl Tompkins MD [address] [place] PCP - General Internal Medicine 06/02/17
--- OUTSIDE RECORDS SUMMARY | 2024-06-24 17:23 | XMS_ITS | Patient Health Record ---
Author Organization [facility] Address [address] [place] [address] Care Team Providers Care Plywood Layup Line Core Layer Name Role Phone Darryl Tompkins MD Primary Care Provider Unavailab Leonel Monk Unavailable [phone] Allergies Allergen (clinical drug ingredient) Drug/Non Drug Allergy documented on EMR Reaction Allergy Type Onset Date Status meperidine Demerol stomach upset Drug Allergy Ac tive Reason For Referral No Information Medications Medication SIG (Take, Route, Fr equency, Duration) Notes Start Date End Date Status Tadalafil 5 MG 1 tablet as needed O rally Once a day for 30 day(s) Active Simvastatin 20 MG 1 tablet in the even ing Orally Once a day Active Finasteride 5 MG 1 tablet Orally Once a day for 30 day(s) Active Probiotic Not-Taking Vitamin B Complex PRN No t-Taking Immunizations Vaccine Route Administration Date Status Comme nts COVID-19 Pfizer BioNTech Vaccine Unknown 08/08/2021 Administered 1st 06/10/20 2nd 07/01/20 3rd 01/08/21 Social History Tobacco Use: Social History Observation Description Date Details (start date - stop date) Never Smoker NA - NA Tobacco Use/Smoking Question Answer Notes Are you a: nonsmoker Additional Findings: Tobacco Non-User Current no n-smoker Alcohol Screen Question Answer Notes Did you have a drink contain ing alcohol in the past year? Yes How often did you have a dri nk containing alcohol in the past year? 2 to 3 times a week (3 points) Points 3 Interpretation Negative Tobacco use other than smoking: Question Answer Notes Are you an other tobacco user? No Problems Problem Type SNOMED Code ICD Code Onset Dates Problem Status W/U Status Risk Notes Problem Acquired hammer toe of right foot (3747838841146 105) Other hammer toe(s) (acquired), right foot (M20.41) Active confirmed Problem Non-pressure chronic ulcer of other part of right foot limited to breakdown of skin (L97.511) Active confirmed Plan Of Treatment Pending Test Test Name Order Date X ray : Foot, right 3V 12/26/2021 X ray : Foot, right 3V 04/09/2022 57657- Debride <25 sq cm 10/05/2019 82008- Debride <25 sq cm 09/11/2021 65913- Debride <25 sq cm 12/18/2021 Insurance Providers Payer Name Payer Address Payer Phone Subscriber Number Group Number Insured Name Patient Relationship to Insured Coverage Start Date Coverage End Date Medicare National Gov[employer] Sv[employer] [address] [place] [address] [id number] Donn Caamra Self - patient is the insured [employer] [address] [place] [address] [id number] Donn Camara Self - patient is the insured Medical (General) History Medical History History ICD Code Chicken pox Cholesterol Broken bones Headaches/Migraines chronic sinusitis Joint dysfunction Joint implants/screws covid-19 Surgical History Surgery Date(Month/Year) knee surgery, left 2009 knee surgery, right 1998 hand/wrist 2001
== END 2024-06-24 14:10 | disposition home or self-care (01) ==
LOC: HO.HMGCX 14:09
PROVIDERS: PCP Internal Medicine; Visit Provider Internal Medicine
DX: M79.642 Pain in left hand (principal)
CPT/HCPCS: 73130

== ENCOUNTER → 2024-06-24 14:24 | Outpatient (BNV) | payer MEDICARE, SELFPAY | PROVIDERS: PCP Internal Medicine; Visit Provider Radiology Diagnostic Radiology | DX: M79.642 Pain in left hand (principal) | CPT/HCPCS: 73130 ==

== ENCOUNTER 2024-12-13 13:56 | Outpatient (AMB) | payer MEDICARE, SELFPAY ==
--- OUTSIDE RECORDS SUMMARY | 2024-12-13 15:19 | XMS_ITS | Patient Health Record ---
Author Organization [facility] Address [address] [place] [address] Care Team Providers Care Women'S Basketball Coach Name Role Phone Darryl Tompkins MD Primary Care Provider Unavailab Leonel Monk Unavailable [phone] Allergies Allergen (clinical drug ingredient) Drug/Non Drug Allergy documented on EMR Reaction Allergy Type Onset Date Status meperidine Demerol stomach upset Drug Allergy Ac tive Reason For Referral No Information Medications Medication SIG (Take, Route, Fr equency, Duration) Notes Start Date End Date Status Tadalafil 5 MG 1 tablet as needed O rally Once a day; Duration: 30 day(s) Activ e Simvastatin 20 MG 1 tablet in the even ing Orally Once a day Active Finasteride 5 MG 1 tablet Orally Once a day; Duration: 30 day(s) Active Probiotic Not-Taking Vitamin B [...] Problem Acquired hammer toe of right foot (5247361326718 105) Other hammer toe(s) (acquired), right foot (M20.41) Active confirmed Problem Non-pressure chronic ulcer of other part of right foot limited to breakdown of skin (L97.511) Active confirmed Plan Of Treatment Pending Test Test Name Order Date X ray : Foot, right 3V 12/26/2021 X ray : Foot, right 3V 04/09/2022 72682- Debride <25 sq cm 10/05/2019 35636- Debride <25 sq cm 09/11/2021 51020- Debride <25 sq cm 12/18/2021 Insurance Providers Payer Name Payer Address Payer Phone Subscriber Number Group Number Insured Name Patient Relationship to Insured Coverage Start Date Coverage End Date Medicare National Govt Svcs Inc [address] [place] [address] [id number] Donn Camara Self - patient is the insured [employer] Blue [employer] [address] [place] [address] [id number] Donn Camara Self - patient is the insured Medical (General) History Medical History History ICD Code Chicken pox Cholesterol Broken bones Headaches/Migraines chronic sinusitis Joint dysfunction Joint implants/screws covid-19 Surgical History Surgery Date(Month/Year) knee surgery, left 2009 knee surgery, right 1998 hand/wrist 2001
--- OUTSIDE RECORDS SUMMARY | 2024-12-13 15:19 | XMS_ITS | Clinical Summary ---
Author Organization [facility] ity Address [address] [place] [address] Care Team Providers Care Field Clerk Name Role Phone Darryl Tompkins MD Primary Care Provider [phone] Social History Tobacco Use Types Packs/Day Years [...] Vaccine ( - 2023-2 5 season) 2023 Depression Screening 04/21/2024 Influenza Vaccine (#1) 2024 RSV Immunization Adult Patie nts (1 - 1-dose 75+ series) 2029 HIB [...] age to complete this topic Meningococcal B Vaccine Aged Out No l onger eligible based on patient's age to complete this topic RSV Immunization Patients Un simi 20 months Aged Out No longer eligible b ased on patient's age to complete this topic Varicella Vaccines Aged Out No longer eligible based on patient's age to complete this topic Care Teams Field Clerk Relationship Specialty Start Date End Date Darryl Tompkins MD [address] [facility] ROSE Jones PCP - General Internal Medicine 06/02/17
--- OUTSIDE RECORDS SUMMARY | 2024-12-13 15:19 | XMS_ITS | Patient Health Record ---
Author Organization [facility] Address [address] [place] [address] Care Team Providers Care Document Processing Specialist Name Role Phone Leda (RETIRED) Darryl BECK Primary Care Provider Unavailable Marbin Garcia Unavailable [phone] Allergies Allergen (clinical drug ingredient) Drug/Non Drug [...] Problem Status W/U Status Risk Notes Problem Encounter for screening for malignant neoplasm of colon (Z12.11) Active confirmed Problem Preprocedural examination (925420213332697) Preprocedural examination (Z01.818) Active confirmed Problem Long-term current use of aspirin (043854029034034) Aspirin long-term use (Z79.82) Active confirmed Problem Family History of Cancer of Colon (Situation) (137652102) Family history of colon cancer (Z80.0) Active confirmed Plan Of Treatment Future Test Test Name Order Date COLONOSCOPY 08/02/2014 COLONOSCOPY 02/29/2020 Insurance Providers Payer Name Payer Address Payer Phone Subscriber Number Group Number Insured Name Patient Relationship to Insured Coverage Start Date Coverage End Date MEDICARE OF [place] [address] [place] [id number] LUZ MARINA SAUNDERS Self - patient is the insured MED[employer] ATTN CLAIMS [address] [place] [address] [id number] LUZ MARINA SAUNDERS Self - patient is the insured Medical (General) History Medical History History ICD Code 03/24/2009 and 2003--negativ e colonoscopies except for diverticulosis and internal hemorrhoids; neg. colonoscopy in 09/2014 Denies [place],DM,CVA,Lung disease,renal dise ase Seasonal allergies Hyperlipidemia Surgical History Surgery Date(Month/Year) Knee surgery-both Carpal Tunnel surgery-bilateral Lower back surgery--Dr. Lang at [place] [address]
== END 2024-12-13 13:58 | disposition home or self-care (01) ==
LOC: HO.HMGAL 13:56
PROVIDERS: PCP Internal Medicine; Visit Provider Registered Nurse Emergency
DX: J30.89 Other allergic rhinitis (principal)
CPT/HCPCS: 95117; 95165

== ENCOUNTER 2024-12-27 12:53 | Outpatient (AMB) | payer MEDICARE, SELFPAY ==
--- OUTSIDE RECORDS SUMMARY | 2024-12-27 15:01 | XMS_ITS | Clinical Summary ---
Author Organization [facility] ity Address [address] [place] [address] Care Team Providers Care Eye Specialist Name Role Phone Darryl Tompkins MD Primary Care Provider Social History Tobacco Use Types Packs/Day Years [...] 02/03/2004 Zoster Vaccines (1 of 2) 02/03/2004 Depression Screening 04/21/2024 COVID-19 Vaccine (1 - 2023-2 5 season) 2024 Influenza Vaccine (#1) 2024 RSV Immunization Adult [...] age to complete this topic Care Teams Eye Specialist Relationship Specialty Start Date End Date Darryl Tompkins MD [address] [facility] ROSE Jones PCP - General Internal Medicine 06/02/17
--- OUTSIDE RECORDS SUMMARY | 2024-12-27 15:01 | XMS_ITS | Patient Health Record ---
Author Organization [facility] Address [address] [place] [address] Care Team Providers Care Cryogenics Engineer Name Role Phone Darryl Tompkins MD Primary Care Provider Unavailab Leonel Monk Unavailable [phone] Allergies Allergen (clinical drug ingredient) Drug/Non Drug [...] Problem Acquired hammer toe of right foot (4005520964229 105) Other hammer toe(s) (acquired), right foot (M20.41) Active confirmed Problem Non-pressure chronic ulcer of other part of right foot limited to breakdown of skin (L97.511) Active confirmed Plan Of Treatment Pending Test Test Name Order Date X ray : Foot, right 3V 12/26/2021 X ray : Foot, right 3V 04/09/2022 81072- Debride <25 sq cm 10/05/2019 44980- Debride <25 sq cm 09/11/2021 93092- Debride <25 sq cm 12/18/2021 Insurance Providers Payer Name Payer Address Payer Phone Subscriber Number Group Number Insured Name Patient Relationship to Insured Coverage Start Date Coverage End Date Medicare National Govt Svcs Inc [address] [place] [address] [id number] Donn Camara Self - patient is the insured [employer] [address] [place] [address] [id number] Donn Camara Self - patient is the insured Medical (General) History Medical History History ICD Code Chicken pox Cholesterol Broken bones Headaches/Migraines chronic sinusitis Joint dysfunction Joint implants/screws covid-19 Surgical History Surgery Date(Month/Year) knee surgery, left 2009 knee surgery, right 1998 hand/wrist 2001
--- OUTSIDE RECORDS SUMMARY | 2024-12-27 15:01 | XMS_ITS | Patient Health Record ---
Author Organization [facility] Address [address] [place] [address] Care Team Providers Care Pattern Illustrator Name Role Phone Leda (RETIRED) Darryl BECK Primary Care Provider Unavailable Marbin Garcia Unavailable [phone] Allergies Allergen (clinical drug ingredient) Drug/Non Drug [...] Problem Screening for malignant neoplasm of colon (014456132) Encounter for screening for malignant neoplasm of colon (Z12.11) Active confirmed Problem Preprocedural examination (118609752561609) Preprocedural examination (Z01.818) Active confirmed Problem Long-term current use of aspirin (941784917209745) Aspirin long-term use (Z79.82) Active confirmed Problem Family History of Cancer of Colon (Situation) (228296299) Family history of colon cancer (Z80.0) Active confirmed Plan Of Treatment Future Test Test Name Order Date COLONOSCOPY 08/02/2014 COLONOSCOPY 02/29/2020 Insurance Providers Payer Name Payer Address Payer Phone Subscriber Number Group Number Insured Name Patient Relationship to Insured Coverage Start Date Coverage End Date [place] [address] [place] [id number] LUZ MARINA SAUNDERS Self - patient is the insured MED[employer] ATTN CLAIMS [address] [place] [address] [id number] LUZ MARINA SAUNDERS Self - patient is the insured Medical (General) History Medical History History ICD Code 03/24/2009 and 2004--negativ e colonoscopies except for diverticulosis and internal hemorrhoids; neg. colonoscopy in 09/2014 Denies [place],DM,CVA,Lung disease,renal dise ase Seasonal allergies Hyperlipidemia Surgical History Surgery Date(Month/Year) Knee surgery-both Carpal Tunnel surgery-bilateral Lower back surgery--Dr. Lang at [facility] 2018
== END 2024-12-27 12:58 | disposition home or self-care (01) ==
LOC: HO.HMGAL 12:53
PROVIDERS: PCP Internal Medicine; Visit Provider Registered Nurse Emergency
DX: J30.89 Other allergic rhinitis (principal)
CPT/HCPCS: 95117; 95165

== ENCOUNTER 2025-01-10 15:39 | Outpatient (AMB) | payer MEDICARE, SELFPAY | END 2025-01-10 15:40 | disposition home or self-care (01) | LOC: HO.HMGAL 15:39 | PROVIDERS: PCP Internal Medicine; Visit Provider Registered Nurse Emergency | DX: J30.89 Other allergic rhinitis (principal) | CPT/HCPCS: 95117; 95165 ==

== ENCOUNTER 2025-01-21 08:48 | Outpatient (AMB) | payer MEDICARE, SELFPAY ==
--- NOTE | 2025-01-21 08:50 | AM.OFFVISMDC ---
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 The patient has a history of diverticulosis and internal hemorrhoids, identified during a colonoscopy on March 29, 2020. Due to a family history of colon cancer, he prefers a five-year interval for colonoscopy screenings. The patient reports an asymptomatic umbilical hernia, with no current need for intervention as advised by Dr. Tompkins. He has a history of elevated PSA levels, leading to a benign biopsy conducted by Dr. Chandler five to six years ago. The patient has a past smoking history, having quit approximately 45 years ago after smoking for five to six years. A chest X-ray three years ago was clear, but lung cancer screening is considered due to his smoking history. Social History - Exercise: Engages in physical activity approximately four times a week, including gym workouts and walking. - Smoking: Former smoker, quit approximately 45 years ago after smoking for five to six years. - Family: , with children who are supportive. HPI Comments History of Present Illness Details Patient is here for an Annual Wellness Visit today. 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 Garcia Urologist- Dr. Raymond Ortho- Dr. Lang Reviewed past medical history- yes Reviewed surgical / hospitalization history- yes Reviewed family history- yes Reviewed current medications- yes Review all current providers patient is actively being followed by- yes Risk Factors Do exercise? Go to Gym every other day sometimes every day How many days per week? 4 days weekly Minutes per episode? 45 minutes Do connolly regularly? yes Do go to the dentist yearly? yes or every 6 months? yes Do use a seatbelt in the vehicle? yes Sexual health: Do you use protection such as condom's? No. Home safety Throw rugs? Yes Grab bars? One in the shower Raised toilet seat? No although Higher toilets Working smoke detectors? Yes Fall risk assessment Fall risk? No falls in the past few years Visit History Last Wellness Visit: Date? unsure Last hospitalization: If any? None Additonal Services needed/Case Management Referrals? Social? None Financial? None Medical referrals? None End of life planning Discussed advanced directives- Yes Member did not wish to discuss above? No Advanced directives on file? Patient will bring paperwork home and will bring at his next visit to place in his chart Discussed wishes expressed in advanced directives? He will want to discuss his wishes with his 1st and then he will come back for his next appointment and let us know Encouraged member to inform others about care preferences. [facility] Medical History (Updated 01/21/25 @ 09:56 by Tiana Acosta PA-C) Colon cancer screening Preventative health care Umbilical hernia Diverticulosis Encounter for annual wellness exam in Medicare patient History of smoking Hyperlipidemia Seasonal allergies Surgical History (Updated 01/21/25 @ 09:56 by Tiana Acosta PA-C) History of back surgery History of bilateral carpal tunnel release Hx of knee surgery Hx of colonoscopy (~03/29/20) Family History Father Colon cancer Mother Congenital heart disease Stroke Social History Are you a primary caregivers homecare to a significant other at home: No Do you presently have visiting nurse or other home services: No Patient Tobacco Use Status: Never used Tobacco Second Hand Smoke Exposure: No Questionnaire Medicare Wellness Checkup [age] What gender do you identify with?: male During the past 4 weeks, how much have you been bothered by emotional problems such as feeling anxious, depressed, irritable, sad or downhearted, and blue?: not at all During the past 4 weeks, has your physical & emotional health limited your social activities with family, friends, neighbors, or groups?: not at all During the past 4 weeks, how much bodily pain have you generally had?: no pain During the past 4 weeks, was someone available to help you if you needed & wanted help?: yes, as much as I wanted During the past 4 weeks, what was the hardest physical activity you could do for at least 2 minutes?: heavy Can you get to places out of walking distance without help? (For eg., can you travel alone on buses, taxis or drive your car?): Yes Can you go shopping for groceries or clothes without someone's help?: Yes Can you prepare your own meals?: Yes Can you do your housework without help?: Yes Because of any health problems, do you need the help of another person with your personal care needs such as eating, bathing, dressing or getting around the house?: No Can you handle your own money without help?: Yes During the past 4 weeks, how would you rate your health in general?: excellent During the past 4 weeks how have things been going for you?: very well; could hardly better Are you having difficulties driving your car?: no Do you always fasten your seat belt when you are in a car?: yes, usually During past 4 weeks, have you been bothered by the following: never: Falling or dizzy when standing up, Trouble eating well?, Problems using the telephone? and Tiredness or fatigue?, seldom: Teeth or denture problems? and sometimes: Sexual problems? Have you fallen 2 or more times in the past year?: No Are you afraid of falling?: No Are you a smoker?: no During the past 4 weeks, how many drinks of wine, beer, or other alcoholic beverages did you have?: 2-5 drinks per week Do you exercise for about 20 minutes 3 or more times a week?: yes, most of the time Have you been given information to help with the following?: no: Hazards in your house that might hurt you? and no: Keeping track of your medications? How often do you have trouble taking medicines the way you have been told to take them?: I always take medicine as prescribed How confident are you that you can control & manage most of your health problems?: very confident What is your race?: White Mini Mental State Exam (MMSE) Orientation What is the (year) (season) (date) (day) (month)?: year, season, date, day and month Where are we (state) (county) (town or city) (hospital) (floor)?: state, county, town or city, hospital/clinic and floor Registration Name of 3 unrelated objects clearly and slowly, then ask patient to repeat all 3 of them. (1st repeat determines score. Make sure they can repeat all three): object 1 (Chamberlain ), object 2 (Chair ) and object 3 (Banana ) Attention & Calculation (CHOOSE ONE) Ask pt to begin with 100 & count backward by 7. Stop after 5 repeats. If pt cannot ask them to spell the word WORLD backward.: 93, 86, 79, 72 and 65 Spell WORLD backwards (DLROW): 5 letters Recall Ask patient to repeat the 3 items from question #3.: object 1 (sunshine), object 2 (banana) and object 3 (chair ) Language Show patient a wristwatch & ask what it is. Repeat for pencil.: watch and pencil Ask the patient to repeat the phrase 'No ifs, ands, or buts' after you.: correct Ask the patient to 'take a piece of paper with their right hand' 'fold paper in half' 'place paper on floor': take paper in right hand, fold paper in half and place paper on floor Print the sentence 'CLOSE YOUR EYES' on a piece. If patient actually closes eyes then score.: followed written direction Give patient a blank piece of paper & ask to write a sentence. Score if it contains a noun & verb.: sentence contains subject and verb Ask patient to copy figure of intersecting pentagons exactly. Score if all 10 angles & 2 intersects are included.: all 10 angles present & 2 are intersected Score Score: 35 Activity of Daily Living Bathing - sponge bath, tub bath or shower: receives no assistance (gets in/out by self, if usual bathing means Dressing - getting clothes from closets & drawers, including inner/outer garments & fasteners.: gets clothes & gets completely dressed without help Toileting - going to the 'toilet room' for urine/bowel elimination & cleaning self/arranging clothes: goes to toilet room, cleans self, arranges clothes without help Transfer: moves in & out of bed and chair without help (may use support object) Continence: controls urination/bowel movements completely by self Feeding: feeds self without help Total Score: 0 Information obtained from: patient Using telephone: independent Traveling: independent Shopping: independent Preparing meals: independent Housework: independent Taking medicine: independent Managing money: independent PHQ-9 Over the last 2 weeks, how often have you been bothered by any of the following problems? 1. Little interest or pleasure in doing things: not at all 2. Feeling down, depressed, or hopeless: not at all 3. Trouble falling or staying asleep, or sleeping too much: not at all 4. Feeling tired or having little energy: not at all 5. Poor appetite or overeating: not at all 6. Feeling bad about yourself - or that you are a failure or have let yourself or your family down: not at all 7. Trouble concentrating on things, such as reading the newspaper or watching television: not at all 8. Moving or speaking so slowly that other people could have noticed. Or the opposite - being so fidgety or restless that you have been moving around a lot more than usual: not at all 9. Thoughts that you would be better off or of hurting yourself in some way: not at all Total score: 0 Depression Screening Interpretation: Negative Depression Screening Done: Yes 96838 - PHQ-9 Billing: Yes Source: Developed by Drs. Marbin Dozier, Halley Mcclure, Richard Veliz and colleagues, with an educational reyna from [employer]. Review of Systems Const Details: - General: Denies recent falls or hospitalizations. - Cardiovascular: Denies chest pain or palpitations. - Respiratory: Denies dyspnea or cough. - Gastrointestinal: Denies abdominal pain or changes in bowel habits. - Genitourinary: Denies urinary incontinence. - Neurological: Denies dizziness or balance issues. All systems reviewed & are unremarkable except as noted in HPI and below Physical Exam Exam Exam: Appearance: Alert. Oriented X3. No acute distress. Head: Normal external exam. Normocephalic. Atraumatic. Eyes: Pupils are equal, round, and reactive to light. Extraocular movements intact. Conjunctiva and sclera normal. Eyelids normal. Throat: Pharynx normal. Uvula midline. Moist mucous membranes. Neck: Normal inspection. Neck supple. Full range of motion. Cardiovascular: Normal heart rate and rhythm. Heart sound normal. No murmurs noted. Pulses normal throughout. Respiratory: No respiratory distress. Painless inspiration. Breath sounds normal. No wheezes/rales/rhonchi noted. No accessory muscle usage noted or decreased air movement noted. Back: Full range of motion noted. Skin: Skin warm and dry. Normal skin color. Extremities: Extremities exhibit normal range of motion. Neuro: Oriented X 3. Vital Signs: Last Vital Signs Temp 97.5 F 01/21/25 08:57 Pulse 80 01/21/25 08:57 Resp 16 01/21/25 08:57 BP 126/61 01/21/25 08:57 Pulse Ox 97 01/21/25 08:57 Oxygen Delivery Method Room Air 01/21/25 08:57 BMI result Body Mass Index 30.4 HEENT Other: Hearing screening Whisper test- passed normal whisper exam Eyes Other: vision screening- 20/40 right eye; 20/15 left eye; 20/15 bilaterally Other: urinary incontinence? no hx Neuro Other: balance- normal balance Romberg- normal Romberg tandem walk test- normal tandem walk test walk-in turned test- normal walk and turn test rise from sit to stand- normal rise from [id number]-nu-[id number] test Office Procedures Vision Screening Right Eye: 20/40 Left Eye: 20/15 Bilateral: 20/15 Color: Pass Overall Vision Screening Results: Pass [id number] - Vision Screening Results Reviewed Results Reviewed: - Colonoscopy (03/29/2020): Diverticulosis and internal hemorrhoids identified. - Chest X-ray (3 years ago): Clear results. Assessment & Plan Assessment & Plan (1) Encounter for annual wellness exam in Medicare patient: Code(s): Z00.00 - Encounter for general adult medical examination without abnormal findings Plan: Patient had a normal annual wellness exam today. Will order screening for lung cancer. Will order AAA screening. Will order PSA screening. Will order CBC, CMP, liver enzymes, lipid panel, magnesium, vitamin B12, vitamin-D, TSH with free T4, UA for preventative care to evaluate for any deficiencies or to evaluate for thyroid, diabetes or prostate cancer, anemia or kidney disease. Patient to go fasting. (2) Diverticulosis: Code(s): K57.90 - Diverticulosis of intestine, part unspecified, without perforation or abscess without bleeding Plan: The patient will continue with regular colonoscopy screenings every five years due to family history of colon cancer. A referral will be made to ensure timely scheduling of the next colonoscopy. (3) Umbilical hernia: Code(s): K42.9 - Umbilical hernia without obstruction or gangrene Plan: The umbilical hernia is currently asymptomatic and does not require surgical intervention unless symptoms develop. (4) Elevated PSA: Code(s): R97.20 - Elevated prostate specific antigen [PSA] Plan: The patient will undergo PSA testing as part of the annual wellness exam to monitor levels. (5) Preventative health care: Code(s): Z00.00 - Encounter for general adult medical examination without abnormal findings Plan: Lung cancer screening will be considered due to the patient's past smoking history. An abdominal aortic aneurysm screening will be performed given the patient's age and smoking history. (6) Colon cancer screening: Code(s): Z12.11 - Encounter for screening for malignant neoplasm of colon Plan: Will refer patient back to gastroenterology for colon cancer screening. Plan Plan Patient was informed and verbally consented to the use of an ambient scribe for clinic note documentation during this visit. 1. Diverticulosis The patient will continue with regular colonoscopy screenings every five years due to family history of colon cancer. A referral will be made to ensure timely scheduling of the next colonoscopy. 2. Umbilical Hernia The umbilical hernia is currently asymptomatic and does not require surgical intervention unless symptoms develop. 3. Elevated Prostate-Specific Antigen (Psa) The patient will undergo PSA testing as part of the annual wellness exam to monitor levels. 4. Preventative Care Lung cancer screening will be considered due to the patient's past smoking history. An abdominal aortic aneurysm screening will be performed given the patient's age and smoking history. During the visit, we discussed the importance of regular colonoscopy screenings due to the patient's family history of colon cancer, and a referral was made to schedule the next screening. We also reviewed the patient's umbilical hernia, which is currently asymptomatic and does not require intervention unless symptoms develop. The patient was informed about the need for PSA testing as part of the annual wellness exam to monitor levels. Preventative care measures, including lung cancer screening and abdominal aortic aneurysm screening, were discussed due to the patient's past smoking history and age. Orders: Orders Complete Blood Count Auto Diff Today Z00.00 - Encounter for general adult medical examination without abnormal findings Vitamin B12 and Folate Today Z00.00 - Encounter for general adult medical examination without abnormal findings UA CC w/rflx Micro + Cult Today Z00.00 - Encounter for general adult medical examination without abnormal findings PSA,Total (Free>4and<10) Today Z00.00 - Encounter for general adult medical examination without abnormal findings US abdominal aortic aneurysm Today Z87.891 - Personal history of nicotine dependence C Reactive Protein Today Z00.00 - Encounter for general adult medical examination without abnormal findings Comprehensive Ola. Panel Fast Today Z00.00 - Encounter for general adult medical examination without abnormal findings Hemoglobin A1c Today Z00.00 - Encounter for general adult medical examination without abnormal findings Lipid Panel Today Z00.00 - Encounter for general adult medical examination without abnormal findings Liver Panel Today Z00.00 - Encounter for general adult medical examination without abnormal findings Magnesium Today Z00.00 - Encounter for general adult medical examination without abnormal findings Vitamin D 25-OH Total Today Z00.00 - Encounter for general adult medical examination without abnormal findings TSH reflex Free T4 Today Z00.00 - Encounter for general adult medical examination without abnormal findings AMB Vision Screening Today Z01.00 - Encounter for examination of eyes and vision without abnormal findings Referrals Lung Cancer Screening Referral Z87.891 - Personal history of nicotine dependence Gastroenterology Referral Z12.11 - Encounter for screening for malignant neoplasm of colon Patient Instructions: - Schedule and attend the colonoscopy screening as referred. - Monitor the umbilical hernia for any changes or symptoms and report if they occur. - Complete the PSA test as part of the annual wellness exam. - Consider lung cancer screening due to past smoking history. - Undergo abdominal aortic aneurysm screening as recommended. Quality Reporting (2019) Depression/Bipolar (159/160/161/177) PHQ-9: Total score: 0 Coding Level of Care Code Medicare First (G0438) Est Pt Level 4 (64096) Diagnoses Encounter for annual wellness exam in Medicare patient Z00.00 Diverticulosis K57.90 Umbilical hernia K42.9 Elevated PSA R97.20 Preventative health care Z00.00 Colon cancer screening Z12.11 CPT Codes Advance Care Planning - Time spent: 1-15 minutes, not on file ([id number]) Vision Screening - Vision Screenin - Vision Screening ([id number]) Additional Codes PHQ-9 - 72785 - PHQ-9 Billing: Yes ([id number]) Time Spent (min) 60 Advance Care Planning Advance Care Planning discussion: Exists, not on file Date of discussion: 01/21/25 Who was present: Patient and Tiana Acosta PA-C Forms completed: Health Care Proxy and MOLST Time spent: 1-15 minutes, not on file Actual minutes spent: 15 Did not discuss due to Cultural/Spiritual beliefs: No
[2025-01-21 08:57] VITALS: BP 126/61; PULSE 80; RESP 16; TEMP 36.4; O2SAT 97; BMI 30.4
--- OUTSIDE RECORDS SUMMARY | 2025-01-21 09:16 | XMS_ITS | Patient Health Record ---
Author Organization [facility] Address [address] [place] [address] Care Team Providers Care Imaging Services Director Name Role Phone Leda (RETIRED) Darryl BECK Primary Care Provider Unavailable Marbin Garcia Unavailable [phone] Allergies Allergen (clinical drug ingredient) Drug/Non Drug [...] Problem Screening for malignant neoplasm of colon (198880691) Encounter for screening for malignant neoplasm of colon (Z12.11) Active confirmed Problem Preprocedural examination ([id number]) Preprocedural examination (Z01.818) Active confirmed Problem Long-term current use of aspirin (129094777436020) Aspirin long-term use (Z79.82) Active confirmed Problem Family History of Cancer of Colon (Situation) (307369561) Family history of colon cancer (Z80.0) Active confirmed Plan Of Treatment Future Test Test Name Order Date COLONOSCOPY 08/02/2014 COLONOSCOPY 02/29/2020 Insurance Providers Payer Name Payer Address Payer Phone Subscriber Number Group Number Insured Name Patient Relationship to Insured Coverage Start Date Coverage End Date MEDICARE OF [place] [address] [place] [id number] LUZ MARINA SAUNDERS Self - patient is the insured MED[employer] ATTN CLAIMS [address] [place] [address] [phone] [id number] LUZ MARINA SAUNDERS Self - patient is the insured Medical (General) History Medical History History ICD Code 03/24/2009 and 2004--negativ e colonoscopies except for diverticulosis and internal hemorrhoids; neg. colonoscopy in 09/2014 Denies TX,DM,CVA,Lung disease,renal dise ase Seasonal allergies Hyperlipidemia Surgical History Surgery Date(Month/Year) Knee surgery-both Carpal Tunnel surgery-bilateral Lower back surgery--Dr. Lang at [facility] 2018
--- OUTSIDE RECORDS SUMMARY | 2025-01-21 09:16 | XMS_ITS | Clinical Summary ---
Author Organization [facility] ity Address [address] [place] [address] Care Team Providers Care Produce Assistant Name Role Phone Darryl Tompkins MD Primary Care Provider [phone] Social History Tobacco Use Types Packs/Day Years [...] age to complete this topic Care Teams Produce Assistant Relationship Specialty Start Date End Date Darryl Tompkins MD [address] [facility] ROSE Jones PCP - General Internal Medicine 06/02/17
== END 2025-01-21 09:45 | disposition home or self-care (01) ==
LOC: HO.HMCSH 08:48
PROVIDERS: PCP Internal Medicine; Visit Provider Physician Assistant Medical
DX: Z00.00 Encounter for general adult medical examination without abnormal findings (principal); K57.90 Diverticulosis of intestine, part unspecified, without perforation or abscess without bleeding; K42.9 Umbilical hernia without obstruction or gangrene; R97.20 Elevated prostate specific antigen [PSA]; Z12.11 Encounter for screening for malignant neoplasm of colon; Z01.00 Encounter for examination of eyes and vision without abnormal findings

== ENCOUNTER → 2025-01-21 08:48 | Outpatient (BNVA) | payer MEDICARE, SELFPAY | PROVIDERS: PCP Internal Medicine; Visit Provider Physician Assistant Medical | DX: Z00.00 Encounter for general adult medical examination without abnormal findings (principal); K57.90 Diverticulosis of intestine, part unspecified, without perforation or abscess without bleeding; K42.9 Umbilical hernia without obstruction or gangrene; R97.20 Elevated prostate specific antigen [PSA]; Z87.891 Personal history of nicotine dependence | CPT/HCPCS: 96127 ==

== ENCOUNTER 2025-01-26 06:21 | Outpatient (REF) | payer MEDICARE, SELFPAY ==
--- OUTSIDE RECORDS SUMMARY | 2025-01-26 06:24 | XMS_ITS | Patient Health Record ---
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 Name Role Phone Darryl Tompkins MD Primary Care Provider Unavailab Leonel Monk Unavailable [phone] Allergies Allergen (clinical drug ingredient) Drug/Non Drug [...] Problem Acquired hammer toe of right foot ([id number]) Other hammer toe(s) (acquired), right foot (M20.41) Active confirmed Problem Non-pressure chronic ulcer of other part of right foot limited to breakdown of skin (L97.511) Active confirmed Plan Of Treatment Pending Test Test Name Order Date X ray : Foot, right 3V 12/26/2021 X ray : Foot, right 3V 04/09/2022 28463- Debride <25 sq cm 10/05/2019 10979- Debride <25 sq cm 09/11/2021 55249- Debride <25 sq cm 12/18/2021 Insurance Providers Payer Name Payer Address Payer Phone Subscriber Number Group Number Insured Name Patient Relationship to Insured Coverage Start Date Coverage End Date Medicare National [employer] [address] [place] [address] [id number] Donn Camara Self - patient is the insured [employer] [address] [place] [address] [id number] Donn Camara Self - patient is the insured Medical (General) History Medical History History ICD Code Chicken pox Cholesterol Broken bones Headaches/Migraines chronic sinusitis Joint dysfunction Joint implants/screws covid-19 Surgical History Surgery Date(Month/Year) knee surgery, left 2009 knee surgery, right 1998 hand/wrist 2001
--- OUTSIDE RECORDS SUMMARY | 2025-01-26 06:24 | XMS_ITS | Patient Health Record ---
Author Organization [facility] Address [address] [place] [address] Care Team Providers Care Cutting And Creasing Press Operator Name Role Phone GILDARDO BE PA-C Primary Care Provider Marbin Robertson Unavailable [phone] Allergies Allergen (clinical drug ingredient) Drug/Non Drug [...] Problem Screening for malignant neoplasm of colon (675305108) Encounter for screening for malignant neoplasm of colon (Z12.11) Active confirmed Problem Preprocedural examination (316345546520573) Preprocedural examination (Z01.818) Active confirmed Problem Long-term current use of aspirin (082496987852803) Aspirin long-term use (Z79.82) Active confirmed Problem Family History of Cancer of Colon (Situation) (623232167) Family history of colon cancer (Z80.0) Active confirmed Plan Of Treatment Future Test Test Name Order Date COLONOSCOPY 08/02/2014 COLONOSCOPY 02/29/2020 Next Appt Details Provider Name:Marbin Garcia , 05/11/2025 03:20:00 PM, [address], [address], [place], [address], Insurance Providers Payer Name Payer Address Payer Phone Subscriber Number Group Number Insured Name Patient Relationship to Insured Coverage Start Date Coverage End Date MEDICARE OF [place] [address] [place] [address] [phone] [id number] LUZ MARINA SAUNDERS Self - patient is the insured MED[employer] ATT[employer] CLAIMS [address] [place] [address] [phone] [id number] LUZ MARINA SAUNDERS Self - patient is the insured Medical (General) History Medical History History ICD Code 03/24/2009 and 2004--negativ e colonoscopies except for diverticulosis and internal hemorrhoids; neg. colonoscopy in 09/2014 Denies [place],DM,CVA,Lung disease,renal dise ase Seasonal allergies Hyperlipidemia Surgical History Surgery Date(Month/Year) Knee surgery-both Carpal Tunnel surgery-bilateral Lower back surgery--Dr. Lang at [place] [address]
--- OUTSIDE RECORDS SUMMARY | 2025-01-26 06:24 | XMS_ITS | Clinical Summary ---
Author Organization [facility] ity Address [address] [place] [address] Care Team Providers Care Pre Planning Advisor Name Role Phone Darryl Tompkins MD Primary Care Provider [phone] Social History Tobacco Use Types Packs/Day Years [...] age to complete this topic Care Teams Pre Planning Advisor Relationship Specialty Start Date End Date Darryl Tompkins MD [address] [facility] ROSE Jones PCP - General Internal Medicine 06/02/17
[2025-01-26 10:37] LABS: MANUAL DIFF FLAG NO
[2025-01-26 10:40] LABS: Hematocrit 48.3 % (42.0-52.0); Hemoglobin 16.6 g/dl (14.0-18.0); Imm Gran Abs Auto 0.01 X10*3/uL (0.00-0.03); Imm Gran Pct Auto 0.2 % (0.0-0.4); Lymphocytes Absolute Auto 1.1 X10*3/uL (1.2-4.9); Mean Corpuscular HGB Conc 34.4 g/dl (31.0-36.0); Mean Corpuscular Hemoglobin 32.5 pg (27.0-33.0); Mean Corpuscular Volume 94.7 fL (80.0-98.0); NRBC Abs Auto 0.000 X10*3/uL (0.0-0.012); NRBC Pct Auto 0.0 /100WBC (0.0-0.2); Platelet Count 288 X10*3/uL (160-400); Red Blood Count 5.10 X10*6/uL (4.60-5.80); White Blood Count 5.1 X10*3/uL (4.8-10.8)
[2025-01-26 10:46] LABS: Hemoglobin A1C 152.2137 umol/L; Total Hemoglobin (HGBA1C) 4106.0041 umol/L
[2025-01-26 11:00] LABS: Appearance Urine Clear; Glucose Urine UA Negative (Negative); PH 7.0 (5.0-9.0); Specific Gravity - Urine 1.015 (1.005-1.025)
[2025-01-26 11:27] LABS: Alanine Aminotransferase 20 U/L (0-40); Albumin Level 4.3 g/dL (3.5-5.0); Alkaline Phosphatase 98 U/L (39-117); Anion Gap 11 (12-20); Aspartate Amino Transferase 32 U/L (5-37); Blood Urea Nitrogen 13 mg/dL (9-16); Calcium 9.2 mg/dL (8.4-10.2); Carbon Dioxide 27 mmol/L (22-29); Chloride 107 mmol/L (96-108); Cholesterol 151 mg/dL (<200); Estimated Glomerular Filt Rate > 60; HDL Cholesterol 44 mg/dL (>40); Magnesium 2.2 mg/dL (1.6-2.6); Potassium 4.1 mmol/L (3.3-5.1); Sodium 141 mmol/L (135-145); Total Protein 6.7 g/dL (6.5-8.0); Triglycerides 84 mg/dL (<150)
[2025-01-26 11:30] LABS: PSA,Total (Free>4and<10) 2.95 ng/mL (0.00-4.00)
[2025-01-26 11:43] LABS: Folate 10.3 ng/mL (> or = 4.0); Vitamin B12 454 pg/mL (200-900)
== END 2025-01-26 06:22 | disposition home or self-care (01) ==
LOC: HO.HMGCLDS 06:21
PROVIDERS: PCP Internal Medicine; Visit Provider Physician Assistant Medical
DX: Z00.00 Encounter for general adult medical examination without abnormal findings (principal); Z12.5 Encounter for screening for malignant neoplasm of prostate; Z13.29 Encounter for screening for other suspected endocrine disorder; Z13.1 Encounter for screening for diabetes mellitus; Z13.21 Encounter for screening for nutritional disorder; Z13.6 Encounter for screening for cardiovascular disorders
CPT/HCPCS: 36415; 80053; 80061; 80076; 81003; 82248; 82306; 82607; 82746; 83036; 83735; 84153; 84443; 85025; 86140

== ENCOUNTER 2025-02-07 10:58 | Outpatient (AMB) | payer MEDICARE, SELFPAY ==
--- OUTSIDE RECORDS SUMMARY | 2025-02-07 13:16 | XMS_ITS | Patient Health Record ---
Author Organization [facility] Address [address] [place] [address] Care Team Providers Care Window Machine Operator Name Role Phone GILDARDO BE PA-C Primary Care Provider Marbin Robertson Unavailable [phone] Allergies Allergen (clinical drug ingredient) Drug/Non Drug [...] TK 1 T PO Q 12 H Ora l; Duration: 30 Active Aspirin 81 81 MG 1 tablet Orally Once a day; Duration: 30 day(s) Active Immunizations Vaccine Route Administration Date Status Comme nts Influenza Unknown 12/21/2019 Administered Problems Problem Type SNOMED Code ICD Code Onset Dates Problem Status W/U Status Risk Notes Problem Screening for malignant neoplasm of colon (829507120) Encounter for screening for malignant neoplasm of colon (Z12.11) Active confirmed Problem Preprocedural examination (012790115745752) Preprocedural examination (Z01.818) Active confirmed Problem Long-term current use of aspirin (795653355373767) Aspirin long-term use (Z79.82) Active confirmed Problem Family History of Cancer of Colon (Situation) (831411442) Family history of colon cancer (Z80.0) Active confirmed Plan Of Treatment Future Test Test Name Order Date COLONOSCOPY 08/02/2014 COLONOSCOPY 02/29/2020 Next Appt Details Provider Name:Marbin Garcia , 05/11/2025 03:20:00 PM, [address], [address], [place], [address], Insurance Providers Payer Name Payer Address Payer Phone Subscriber Number Group Number Insured Name Patient Relationship to Insured Coverage Start Date Coverage End Date MEDICARE OF [place] [address] [facility] [place] [address] [id number] LUZ MARINA SAUNDERS Self - patient is the insured MED[employer] ATTN CLAIMS [address] [place] [address] [phone] [id number] LUZ MARINA SAUNDERS Self - patient is the insured Medical (General) History Medical History History ICD Code 03/24/2009 and 2004--negativ e colonoscopies except for diverticulosis and internal hemorrhoids; neg. colonoscopy in 09/2014 Denies [place],DM,CVA,Lung disease,renal dise ase Seasonal allergies Hyperlipidemia Surgical History Surgery Date(Month/Year) Knee surgery-both Carpal Tunnel surgery-bilateral Lower back surgery--Dr. Lang at [facility] y 2018
--- OUTSIDE RECORDS SUMMARY | 2025-02-07 13:16 | XMS_ITS | Clinical Summary ---
Author Organization [facility] ity Address [address] [place] [address] Care Team Providers Care Novelty Maker Name Role Phone Darryl Tompkins MD Primary Care Provider [phone] Social History Tobacco Use Types Packs/Day Years [...] age to complete this topic Care Teams Novelty Maker Relationship Specialty Start Date End Date Darryl Tompkins MD [address] [facility] ROSE Jones PCP - General Internal Medicine 06/02/17
--- OUTSIDE RECORDS SUMMARY | 2025-02-07 13:17 | XMS_ITS | Patient Health Record ---
Author Organization [facility] Address [address] [place] [address] Care Team Providers Care Pipe Puller Name Role Phone Darryl Tompkins MD Primary Care Provider Unavailab Leonel Monk Unavailable [phone] Allergies Allergen (clinical drug ingredient) Drug/Non Drug [...] Problem Acquired hammer toe of right foot (0082712482693 105) Other hammer toe(s) (acquired), right foot (M20.41) Active confirmed Problem Non-pressure chronic ulcer of other part of right foot limited to breakdown of skin (L97.511) Active confirmed Plan Of Treatment Pending Test Test Name Order Date X ray : Foot, right 3V 12/26/2021 X ray : Foot, right 3V 04/09/2022 85204- Debride <25 sq cm 10/05/2019 78150- Debride <25 sq cm 09/11/2021 23140- Debride <25 sq cm 12/18/2021 Insurance Providers Payer Name Payer Address Payer Phone Subscriber Number Group Number Insured Name Patient Relationship to Insured Coverage Start Date Coverage End Date Medicare National Govt Sv[employer] [address] [facility] [place] [address] [id number] Donn Camara Self - patient is the insured [employer] Blue Shield [address] [place] [address] [id number] Donn Camara Self - patient is the insured Medical (General) History Medical History History ICD Code Chicken pox Cholesterol Broken bones Headaches/Migraines chronic sinusitis Joint dysfunction Joint implants/screws covid-19 Surgical History Surgery Date(Month/Year) knee surgery, left 2009 knee surgery, right 1998 hand/wrist 2001
== END 2025-02-07 10:59 | disposition home or self-care (01) ==
LOC: HO.HMGAL 10:58
PROVIDERS: PCP Internal Medicine; Visit Provider Registered Nurse Emergency
DX: J30.89 Other allergic rhinitis (principal)
CPT/HCPCS: 95117; 95165

== ENCOUNTER 2025-03-02 13:40 | Outpatient (AMB) | payer MEDICARE, SELFPAY ==
--- OUTSIDE RECORDS SUMMARY | 2025-03-02 16:41 | XMS_ITS | Clinical Summary ---
Author Organization [facility] ity Address [address] [place] [address] Care Team Providers Care Tag Writer Name Role Phone Darryl Tompkins MD Primary Care Provider [phone] Social History Tobacco Use Types Packs/Day Years [...] Depression Screening 04/21/2024 COVID-19 Vaccine (1 - 2024-2 6 season) 2024 Influenza Vaccine (#1) 2024 RSV [...] age to complete this topic Care Teams Tag Writer Relationship Specialty Start Date End Date Darryl Tompkins MD [address] [facility] ROSE Jones PCP - General Internal Medicine 06/02/17
--- OUTSIDE RECORDS SUMMARY | 2025-03-02 16:41 | XMS_ITS | Patient Health Record ---
Author Organization [facility] Address [address] [place] [address] Care Team Providers Care Licensed Audiologist Name Role Phone Darryl Tompkins MD Primary Care Provider Unavailab Leonel Monk Unavailable [phone] Allergies Allergen (clinical drug ingredient) Drug/Non Drug [...] Problem Acquired hammer toe of right foot (1636625632330 105) Other hammer toe(s) (acquired), right foot (M20.41) Active confirmed Problem Non-pressure chronic ulcer of other part of right foot limited to breakdown of skin (L97.511) Active confirmed Plan Of Treatment Pending Test Test Name Order Date X ray : Foot, right 3V 12/26/2021 X ray : Foot, right 3V 04/09/2022 70232- Debride <25 sq cm 10/05/2019 13937- Debride <25 sq cm 09/11/2021 02388- Debride <25 sq cm 12/18/2021 Insurance Providers Payer Name Payer Address Payer Phone Subscriber Number Group Number Insured Name Patient Relationship to Insured Coverage Start Date Coverage End Date Medicare National Govt Svcs Inc [address] [place] [address] [id number] Donn Camara Self - patient is the insured [employer] Blue Shield [address] [place] [address] [id number] Donn Camara Self - patient is the insured Medical (General) History Medical History History ICD Code Chicken pox Cholesterol Broken bones Headaches/Migraines chronic sinusitis Joint dysfunction Joint implants/screws covid-19 Surgical History Surgery Date(Month/Year) knee surgery, left 2009 knee surgery, right 1998 hand/wrist 2001
--- OUTSIDE RECORDS SUMMARY | 2025-03-02 16:41 | XMS_ITS | Patient Health Record ---
Author Organization [facility] Address [address] [place] [address] Care Team Providers Care Commissioned Security Officer Name Role Phone GILDARDO BE PA-C Primary Care Provider Marbin Robertson Unavailable [phone] Allergies Allergen (clinical drug ingredient) Drug/Non Drug [...] Problem Screening for malignant neoplasm of colon (199690457) Encounter for screening for malignant neoplasm of colon (Z12.11) Active confirmed Problem Preprocedural examination (010018995464370) Preprocedural examination (Z01.818) Active confirmed Problem Long-term current use of aspirin (652541644026095) Aspirin long-term use (Z79.82) Active confirmed Problem Family History of Cancer of Colon (Situation) (274571337) Family history of colon cancer (Z80.0) Active confirmed Plan Of Treatment Future Test Test Name Order Date COLONOSCOPY 08/02/2014 COLONOSCOPY 02/29/2020 Next Appt Details Provider Name:Marbin Garcia , 05/11/2025 03:20:00 PM, [address], [address], [place], [address], Insurance Providers Payer Name Payer Address Payer Phone Subscriber Number Group Number Insured Name Patient Relationship to Insured Coverage Start Date Coverage End Date MEDICARE OF [place] [address] [facility] [place] [address] [id number] LUZ MARINA SAUNDERS Self - patient is the insured MED[employer] ATTN CLAIMS [address] [place] [address] [phone] [id number] LUZ MARINA SAUNDERS Self - patient is the insured Medical (General) History Medical History History ICD Code 03/24/2009 and 2004--negativ e colonoscopies except for diverticulosis and internal hemorrhoids; neg. colonoscopy in 09/2014 Denies [place],DM,CVA,Lung disease,renal dise ase Seasonal allergies Hyperlipidemia Surgical History Surgery Date(Month/Year) Knee surgery-both Carpal Tunnel surgery-bilateral Lower back surgery--Dr. Lang at [facility] y 2018
== END 2025-03-02 13:41 | disposition home or self-care (01) ==
LOC: HO.HMGAL 13:40
PROVIDERS: PCP Internal Medicine; Visit Provider Registered Nurse Emergency
DX: J30.89 Other allergic rhinitis (principal)
CPT/HCPCS: 95117; 95165

== ENCOUNTER 2025-03-09 09:18 | Outpatient (AMB) | payer MEDICARE, SELFPAY ==
--- NOTE | 2025-03-09 09:23 | MHC.PC.OV ---
Vital Signs 03/09/25 09:38 Height 5 ft 8.11 in Weight 203 lb BMI 30.8 BP 131/64 Blood Pressure Location Lt brachial Position Sitting Respiration 14 Pulse 70 Pulse Source Pulse Oximeter Temp 98.2 F Temp Source Temporal Artery Scan Pulse Oximetry (%) 96 Oxygen Delivery Method Room Air Intake Visit Reasons: 1 month f/u Hospice Clinical Marketer Required: No Accompanied by: Self / Same As Patient Allergies fentanyl Adverse Reaction (Verified 03/09/25 10:32) Nausea and Vomiting meperidine (From Demerol) Adverse Reaction (Verified 03/09/25 10:32) Nausea and Vomiting Medication List - Last Reconciled 03/09/25 by Tiana Acosta PA-C aspirin 81 mg PO DAILY simvastatin 20 mg PO DAILY Tobacco use date assessed: 03/09/25 Fall risk assessment: No Falls in past year Last assessed Fall Risk: 03/09/25 Dental Screening Dental Screen Date: 03/09/25 Did you have a dental visit in the last 12 months?: Yes Did you have a dental problem in the last 6 months where you did not have access to dental care?: No Was dental information given to patient?: Patient has dentist HPI HPI Comments History of Present Illness Details History of Present Illness The patient is a 70-year-old male presenting for a follow-up visit to review preventative screenings and recent lab work. He has a history of smoking, having quit over 40 years ago, and a history of asbestos exposure. A referral for lung cancer screening was initially not approved due to the prolonged time since smoking cessation. Subsequently, a CT scan of the chest with IV contrast was ordered, citing asbestos exposure as the indication. An abdominal ultrasound has also been ordered as a screening for an aortic aneurysm due to his smoking history. The patient is scheduled for a pre-procedure appointment on May 11 for a colonoscopy with Dr. Garcia. He has a family history of colon cancer in his father and has undergone numerous prior colonoscopies, starting at age 44. The patient also has a family history of prostate cancer in his father. Approximately 4-5 years ago, he had an elevated PSA, which prompted a prostate biopsy that was found to be benign. He was treated with ProScar, and his PSA decreased to a normal range; the medication was subsequently discontinued by urology with a recommendation to monitor PSA every six months. Recent laboratory results were reviewed and were largely normal, including white blood cells, red blood cells, platelets, electrolytes, and kidney function. His hemoglobin A1c was 5.5%, total cholesterol was 151 mg/dL, LDL was 91 mg/dL, and his PSA, vitamin levels, and thyroid function were all normal. The patient is on simvastatin and reports taking his medications. Social History - Tobacco Use: Reports a history of smoking but quit over 40 years ago. - Occupational History: Reports a history of asbestos exposure. [facility] Medical History (Updated 03/09/25 @ 10:35 by Tiana Acosta PA-C) Prediabetes History of elevated PSA Exposure to asbestos Colon cancer screening Preventative health care Umbilical hernia Diverticulosis Encounter for annual wellness exam in Medicare patient History of smoking Hyperlipidemia Seasonal allergies Surgical History History of back surgery History of bilateral carpal tunnel release Hx of knee surgery Hx of colonoscopy (~03/29/20) Family History Father Colon cancer Mother Congenital heart disease Stroke Social History Housing: House Are you a primary family member caretaker to a significant other at home: No Do you presently have visiting nurse or other home services: No Alcohol intake: current Alcohol intake frequency: a few times a week Patient Tobacco Use Status: Former Tobacco user service: No Current occupational status: retired Cognitive needs: No Hearing needs: No Vision needs: Yes (reading glasses/ RX glasses) Questionnaire PHQ-9 Over the last 2 weeks, how often have you been bothered by any of the following problems? 1. Little interest or pleasure in doing things: not at all 2. Feeling down, depressed, or hopeless: not at all 3. Trouble falling or staying asleep, or sleeping too much: not at all 4. Feeling tired or having little energy: not at all 5. Poor appetite or overeating: not at all 6. Feeling bad about yourself - or that you are a failure or have let yourself or your family down: not at all 7. Trouble concentrating on things, such as reading the newspaper or watching television: not at all 8. Moving or speaking so slowly that other people could have noticed. Or the opposite - being so fidgety or restless that you have been moving around a lot more than usual: not at all 9. Thoughts that you would be better off or of hurting yourself in some way: not at all Total score: 0 Depression Screening Interpretation: Negative Depression Screening Done: Yes 17849 - PHQ-9 Billing: Yes Source: Developed by Drs. Marbin Dozier, Halley Mcclure, Richard Veliz and colleagues, with an educational reyna from [employer]. Thrive Questionnaire Date Thrive assessed: 01/14/25 I am a: Patient What is your living situation today?: I have a steady place to live Within the past 12 months, did the food you bought not last and you didn't have the money to get more?: Never true Within the past 12 months, did you worry whether your food would run out before you got money to buy more?: Never true Do you have trouble paying for medicines?: No Do you have trouble getting transportation to medical appointments?: No Do you have trouble paying your heating and electricity bill?: No Do you have trouble taking care of your child, family member or friend?: No Do you have trouble with day-to-day activities such as bathing, preparing meals, shopping, managing finances, etc.?: No Are you currently unemployed and looking for a job?: No Please select the resources that you would like help with: None THRIVE Score: 0 AUDIT C Alcohol Use Questionnaire (AUDIT-C) 1. How often do you have a drink containing alcohol?: 2-3 times a week 2. How many drinks containing alcohol do you have on a typical day when you are drinking?: 1 or 2 3. How often do you have six or more drinks on one occasion?: Never Total Score: 3 Score Reviewed/Action Taken: Yes MAMIE-7 AMB Questionnaire MAMIE-7 Date MAMIE - 7 assessed: 03/09/25 Feeling nervous, anxious, or on edge: 0 = Not at all Not being able to stop or control worryin = Not at all Worrying too much about different things: 0 = Not at all Trouble relaxin = Not at all Being so restless that it is hard to sit still: 0 = Not at all Becoming easily annoyed or irritable: 0 = Not at all Feeling afraid as if something awful might happen: 0 = Not at all Total MAMIE-7 score (0-4 normal; 5-9 mild; 10-14 moderate; 15-21 severe): 0 Source: Developed by Drs. Marbin Dozier, Halley Mcclure, Richard Veliz and colleagues, with an educational reyna from [employer]. MAMIE-7 Assessment Billing MAMIE-7 Assessment Tool: MAMIE-7 Assessment 93760 Review of Systems Narrative Review of Systems - Abdominal: Denies abdominal pain. Const All systems reviewed & are unremarkable except as noted in HPI and below Physical exam (Primary Care) Vital Signs: Last Vital Signs Temp 98.2 F 03/09/25 09:38 Pulse 70 03/09/25 09:38 Resp 14 03/09/25 09:38 BP 131/64 03/09/25 09:38 Pulse Ox 96 03/09/25 09:38 Oxygen Delivery Method Room Air 03/09/25 09:38 Care Plan Goal for BP management: <140/90 at Goal BMI result Body Mass Index 30.8 BMI Assessment/Plan discussion: High BMI High, discussed plan: lifestyle, weight reduction, dietary, physical activity, alcohol moderation and other Tobacco/Smoking Status: Tobacco use Status Tobacco use date assessed 03/09/25 03/09/25 09:51 Patient Tobacco Use Status Former Tobacco user 03/09/25 10:03 PHQ-9: PHQ-9 Score PHQ-9: Total score 0 03/09/25 09:51 Depression Screening Interpretation: Negative Thrive Assessment: Date of Thrive Assessment Date Thrive assessed 01/14/25 03/09/25 09:25 Narrative Physical Exam Appearance: Alert. Oriented X3. No acute distress. Head: Normal external exam. Normocephalic. Atraumatic. Eyes: Pupils are equal, round, and reactive to light. Extraocular movements intact. Conjunctiva and sclera normal. Eyelids normal. Throat: Pharynx normal. Uvula midline. Moist mucous membranes. Neck: Normal inspection. Neck supple. Full range of motion. Cardiovascular: Normal heart rate and rhythm. Respiratory: No respiratory distress. Painless inspiration. Back: Full range of motion noted. Skin: Skin warm and dry. Normal skin color. Normal skin turgor. No rashes/lesions/lacerations noted. Extremities: Extremities exhibit normal range of motion. Neuro: Oriented X 3. No motor deficit. No sensory deficit. Reflexes normal. Office Procedures Flu Questionnaire Does the patient have a severe egg allergy?: No Does the patient have severe life threatening allergies?: No Does the patient have a fever or illness today?: No Has the patient ever had Guillain-[place] Syndrome?: No Has the patient ever had any past reaction to a flu shot?: No Immunizations Fluarix [id number] (PF) 45 mcg (15 mcg x 3)/0.5 mL IM syringe Performing Provider: Tiana Acosta PA-C Performing Location[facility] Documented (not given) by: ROMULO Lee on 03/09/25 10:04 Reason Not Given: Received Previously Results Reviewed Results Reviewed: Results - Labs reviewed: - CBC: White blood cells, red blood cells, and platelets are normal. - CMP: Sodium, potassium, and kidney function are normal. - Hemoglobin A1c: 5.5%. - Liver Enzymes: Normal. - Lipid Panel: Total cholesterol 151 mg/dL, LDL 91 mg/dL, HDL 44 mg/dL. - PSA: Normal. - Vitamins: B12, D, and folate are normal. - Thyroid: Normal. - Urinalysis: Negative for blood, glucose, or protein. - Prior Prostate Biopsy (03/12 of a prior year): Benign pathology. Coding Level of Care Code Est Pt Level 4 (92512) Complex EM visit Add On G2211 Diagnoses Exposure to asbestos Z77.090 [facility] health care Z00.00 Colon cancer screening Z12.11 History of elevated PSA Z87.898 Prediabetes R73.03 Hyperlipidemia E78.5 Additional Codes PHQ-9 - 41447 - PHQ-9 Billing: Yes ([id number]) MAMIE-7 Assessment Billing - MAMIE-7 Assessment Tool: MAMIE-7 Assessment 58608 ([id number]) Assessment & Plan Assessment & Plan (1) Exposure to asbestos: Code(s): Z77.090 - Contact with and (suspected) exposure to asbestos Category: Medical Plan: An initial referral for lung cancer screening was canceled by the screening department. A new order for a CT scan of the chest with IV contrast has been placed with the indication of asbestos exposure. The patient will need to have blood work done within 30 days prior to the imaging study. (2) Preventative health care: Code(s): Z00.00 - Encounter for general adult medical examination without abnormal findings Category: Medical Plan: An abdominal ultrasound has been ordered to screen for an aortic aneurysm due to the patient's history of smoking. The patient will be contacted for scheduling, and the order will remain active. (3) Colon cancer screening: Code(s): Z12.11 - Encounter for screening for malignant neoplasm of colon Category: Medical Plan: The patient has a scheduled pre-operative appointment for a colonoscopy on May [address] Garcia, which is indicated due to family history. Will continue with the current plan. (4) History of elevated PSA: Code(s): Z87.898 - Personal history of other specified conditions Category: Medical Plan: The patient has a history of elevated PSA with a benign prostate biopsy and a family history of prostate cancer. His PSA is currently within the normal range. Following a prior urology recommendation, PSA will be monitored every six months instead of annually. An order for a PSA test in six months has been placed. (5) Prediabetes: Code(s): R73.03 - Prediabetes Category: Medical Plan: The patient's hemoglobin A1c is 5.5%, which is in the prediabetic range. No acute intervention is planned at this time; will continue to monitor with subsequent lab work. (6) Hyperlipidemia: Code(s): E78.5 - Hyperlipidemia, unspecified Category: Medical Plan: The patient's cholesterol is well-controlled with a total cholesterol of 151 mg/dL. He will continue his current medication, simvastatin, and does not require refills at this time. Plan Plan Patient was informed and verbally consented to the use of an ambient scribe for clinic note documentation during this visit. 1. Lung Cancer Screening An initial referral for lung cancer screening was canceled by the screening department. A new order for a CT scan of the chest with IV contrast has been placed with the indication of asbestos exposure. The patient will need to have blood work done within 30 days prior to the imaging study. 2. Abdominal Aortic Aneurysm Screening An abdominal ultrasound has been ordered to screen for an aortic aneurysm due to the patient's history of smoking. The patient will be contacted for scheduling, and the order will remain active. 3. Colon Cancer Screening The patient has a scheduled pre-operative appointment for a colonoscopy on May [address] Garcia, which is indicated due to family history. Will continue with the current plan. 4. History Of Elevated Prostate-Specific Antigen The patient has a history of elevated PSA with a benign prostate biopsy and a family history of prostate cancer. His PSA is currently within the normal range. Following a prior urology recommendation, PSA will be monitored every six months instead of annually. An order for a PSA test in six months has been placed. 5. Prediabetes The patient's hemoglobin A1c is 5.5%, which is in the prediabetic range. No acute intervention is planned at this time; will continue to monitor with subsequent lab work. 6. Hyperlipidemia The patient's cholesterol is well-controlled with a total cholesterol of 151 mg/dL. He will continue his current medication, simvastatin, and does not require refills at this time. Discussion Notes I discussed with the patient that his referral for lung cancer screening was not approved, so I ordered a CT scan of the chest with contrast instead, using his history of asbestos exposure as the indication. I informed him that he will need to complete blood work within [address] scan. We also reviewed the pending order for an abdominal ultrasound to screen his aorta, and he agreed to proceed if contacted for scheduling. I confirmed that his pre-operative appointment for a colonoscopy is scheduled for May 11, and we reviewed the importance of this screening due to his family history of colon cancer. We reviewed his recent lab results, which were largely unremarkable, noting his well-controlled cholesterol and a hemoglobin A1c of 5.5%, which is borderline for prediabetes. We discussed his history of elevated PSA and his family history of prostate cancer. Based on a prior urology recommendation to check PSA every six months after his benign biopsy, I have placed an order for this to be done in six months, and we will continue monitoring biannually rather than annually. I also clarified that the cognitive screening questions he received previously are a standard part of Medicare's preventative health assessment. The patient does not need any medication refills today. He has also requested his prior medical records from Dr. Tompkins's office, and we will ask staff to assist with this process. He will follow up in one year for an annual physical. Orders: Orders Influenza [id number] Immunization Today Z23 - Encounter for immunization PSA,Total (Free>4and<10) 6 Months Z00.00 - Encounter for general adult medical examination without abnormal findings Patient Instructions: Patient Instructions - An order has been placed for a CT scan of your chest. - The hospital will call you to schedule this. - You must have blood work done within [address]. - You have an order for an abdominal ultrasound. - Please wait for the scheduling department to contact you. - Please attend your scheduled appointment with Dr. Garcia on May 11 for your colonoscopy pre-op. - An order has been placed for you to have a PSA blood test in six months. - You can go to the lab to get this done around September or October. - Continue taking your current medications, including simvastatin for cholesterol. - You do not need any refills today. - Your recent blood work was good, but we will continue to monitor your blood sugar, which is slightly elevated. - Please schedule a follow-up appointment in one year for your annual physical, or sooner if any issues arise.
[2025-03-09 09:38] VITALS: BP 131/64; PULSE 70; RESP 14; TEMP 36.8; O2SAT 96; BMI 30.8
--- OUTSIDE RECORDS SUMMARY | 2025-03-09 17:13 | XMS_ITS | Clinical Summary ---
Author Organization [facility] ity Address [address] [place] [address] Care Team Providers Care Actor Understudy Name Role Phone Darryl Tompkins MD Primary Care Provider [phone] Social History Tobacco Use Types Packs/Day Years [...] age to complete this topic Care Teams Actor Understudy Relationship Specialty Start Date End Date Darryl Tompkins MD [address] [facility] ROSE Jones PCP - General Internal Medicine 06/02/17
--- OUTSIDE RECORDS SUMMARY | 2025-03-09 17:14 | XMS_ITS | Patient Health Record ---
Author Organization [facility] Address [address] [place] [address] Care Team Providers Care Hot Metal Charger Name Role Phone Darryl Tompkins MD Primary Care Provider Unavailab Leonel Monk Unavailable [phone] Allergies Allergen (clinical drug ingredient) Drug/Non Drug [...] Problem Acquired hammer toe of right foot ([id number]) Other hammer toe(s) (acquired), right foot (M20.41) Active confirmed Problem Non-pressure chronic ulcer of other part of right foot limited to breakdown of skin (L97.511) Active confirmed Plan Of Treatment Pending Test Test Name Order Date X ray : Foot, right 3V 12/26/2021 X ray : Foot, right 3V 04/09/2022 75381- Debride <25 sq cm 10/05/2019 94195- Debride <25 sq cm 09/11/2021 48170- Debride <25 sq cm 12/18/2021 Insurance Providers Payer Name Payer Address Payer Phone Subscriber Number Group Number Insured Name Patient Relationship to Insured Coverage Start Date Coverage End Date Medicare National [employer] [address] [place] [address] [id number] Donn Camara Self - patient is the insured [employer] [address] [place] [address] [id number] Donn Camara Self - patient is the insured Medical (General) History Medical History History ICD Code Chicken pox Cholesterol Broken bones Headaches/Migraines chronic sinusitis Joint dysfunction Joint implants/screws covid-19 Surgical History Surgery Date(Month/Year) knee surgery, left 2009 knee surgery, right 1998 hand/wrist 2001
--- OUTSIDE RECORDS SUMMARY | 2025-03-09 17:14 | XMS_ITS | Patient Health Record ---
Author Organization [facility] Address [address] [place] [address] Care Team Providers Care Formula Technician Name Role Phone GILDARDO BE PA-C Primary Care Provider Marbin Robertson [phone] Allergies Allergen (clinical drug ingredient) Drug/Non Drug Allergy documented on EMR Reaction Allergy Type Onset Date Status meperidine Demerol (uncoded) Unknown Allergy A ctive fentanyl Fentanyl (uncoded) Unknown Allergy A ctive trees,grasses ,mold ,lucero (uncoded) Unknown Allergy Active Reason For Referral No Information Medications Medication SIG (Take, Route, Frequency, Duration) Notes Start Date End Date Status Probiotic - Capsule as directed Orally Active Simvastatin 20 MG Tablet TK 1 T PO Q 12 H Oral; Duration: 30 Active Aspirin 81 81 MG Tablet Delayed Release 1 tablet Orally Once a day; Duration: 30 day(s) Active Immunizations Vaccine Route Administration Date Status Comme nts Influenza Unknown 12/21/2019 Administered Social History Social History Additional Details Category Social Info Options Details Miscellaneous: Marital status: 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 Nonsmoker for > 10 years; no significant alcohol use. Problems Problem Type SNOMED Code ICD Code Onset Dates Problem Status W/U Status Risk Notes Problem Screening for malignant neoplasm of colon (794990362) Encounter for screening for malignant neoplasm of colon (Z12.11) Active confirmed Problem Preprocedural examination (887344475182498) Preprocedural examination (Z01.818) Active confirmed Problem Long-term current use of aspirin (841116751567585) Aspirin long-term use (Z79.82) Active confirmed Problem Family History of Cancer of Colon (Situation) (514345094) Family history of colon cancer (Z80.0) Active confirmed Plan Of Treatment Future Test Test Name Order Date COLONOSCOPY 08/02/2014 COLONOSCOPY 02/29/2020 Next Appt Details Provider Name:Marbin Garcia , 05/11/2025 03:20:00 PM, [address] [place] [address], [address], [place], [address], Insurance Providers Payer Name Payer Address Payer Phone Subscriber Number Group Number Insured Name Patient Relationship to Insured Coverage Start Date Coverage End Date MEDICARE OF [place] [address] [place] [address] [id number] LUZ MARINA SAUNDERS Self - patient is the insured [employer] ATT[employer] CLAIMS [address] [place] [phone] [id number] LUZ MARINA SAUNDERS Self - patient is the insured Medical (General) History Medical History History ICD Code 03/24/2009 and 2004--negativ e colonoscopies except for diverticulosis and internal hemorrhoids; neg. colonoscopy in 09/2014 Denies TN,DM,CVA,Lung disease,renal dise ase Seasonal allergies Hyperlipidemia Surgical History Surgery Date(Month/Year) Knee surgery-both Carpal Tunnel surgery-bilateral Lower back surgery--Dr. Lang at [facility] 2018
== END 2025-03-09 10:30 | disposition home or self-care (01) ==
LOC: HO.HMCSH 09:18
PROVIDERS: PCP Physician Assistant Medical; Visit Provider Physician Assistant Medical
DX: Z77.090 Contact with and (suspected) exposure to asbestos (principal); Z00.00 Encounter for general adult medical examination without abnormal findings; Z12.11 Encounter for screening for malignant neoplasm of colon; Z87.898 Personal history of other specified conditions; R73.03 Prediabetes; E78.5 Hyperlipidemia, unspecified; Z23 Encounter for immunization

== ENCOUNTER → 2025-03-09 09:18 | Outpatient (BNVA) | payer MEDICARE, SELFPAY | PROVIDERS: PCP Internal Medicine; Visit Provider Physician Assistant Medical | DX: Z71.2 Person consulting for explanation of examination or test findings (principal); R73.03 Prediabetes; E78.5 Hyperlipidemia, unspecified; Z77.090 Contact with and (suspected) exposure to asbestos; Z13.31 Encounter for screening for depression; Z13.39 Encounter for screening examination for other mental health and behavioral disorders | CPT/HCPCS: 90471; 96127; 99212 ==

== ENCOUNTER 2025-03-31 07:53 | Outpatient (REF) | payer MEDICARE, SELFPAY ==
--- NOTE | ~2025-03-31 | US_ITS ---
CLINICAL HISTORY: Z87.891 - Personal history of nicotine dependence US Abdomen (AAA) Comparison: None provided Findings: Aorta proximal 2.4 cm. Aorta mid 2.6 cm. Aorta distal 2.1 cm. Right common iliac artery 1.2 cm. Left common iliac artery 1.4 cm. IMPRESSION: 1. No abdominal aortic aneurysm. This document has been electronically signed by: Brody Perez MD on 04/01/2025 09:00:47
== END 2025-03-31 07:54 | disposition home or self-care (01) ==
LOC: HO.HMGCX 07:53
PROVIDERS: PCP Internal Medicine; Visit Provider Physician Assistant Medical
DX: Z87.891 Personal history of nicotine dependence (principal)
CPT/HCPCS: 76706

== ENCOUNTER → 2025-03-31 07:56 | Outpatient (BNV) | payer MEDICARE, SELFPAY | PROVIDERS: PCP Internal Medicine; Visit Provider Specialist | DX: Z87.891 Personal history of nicotine dependence (principal) | CPT/HCPCS: 76706 ==

== ENCOUNTER 2025-04-06 14:03 | Outpatient (AMB) | payer MEDICARE, SELFPAY ==
--- OUTSIDE RECORDS SUMMARY | 2025-04-06 18:46 | XMS_ITS | Clinical Summary ---
Author Organization [facility] ity Address [address] [place] [address] Care Team Providers Care Director Of Rehabilitative Services Name Role Phone Darryl Tompkins MD Primary Care Provider [phone] Social History Tobacco Use Types Packs/Day Years [...] age to complete this topic Care Teams Director Of Rehabilitative Services Relationship Specialty Start Date End Date Darryl Tompkins MD [address] [facility] RSOE Jones PCP - General Internal Medicine 06/02/17
--- OUTSIDE RECORDS SUMMARY | 2025-04-06 18:46 | XMS_ITS | Patient Health Record ---
Author Organization [facility] Address [address] [place] [address] Care Team Providers Care Client Services Analyst Name Role Phone Darryl Tompkins MD Primary Care Provider Unavailab Leonel Monk Unavailable [phone] Allergies Allergen (clinical drug ingredient) Drug/Non Drug [...] Problem Acquired hammer toe of right foot (9784763409508 105) Other hammer toe(s) (acquired), right foot (M20.41) Active confirmed Problem Non-pressure chronic ulcer of other part of right foot limited to breakdown of skin (L97.511) Active confirmed Plan Of Treatment Pending Test Test Name Order Date X ray : Foot, right 3V 12/26/2021 X ray : Foot, right 3V 04/09/2022 34578- Debride <25 sq cm 10/05/2019 32771- Debride <25 sq cm 09/11/2021 99686- Debride <25 sq cm 12/18/2021 Insurance Providers Payer Name Payer Address Payer Phone Subscriber Number Group Number Insured Name Patient Relationship to Insured Coverage Start Date Coverage End Date Medicare National [employer] [address] [facility] [place] [address] [id number] Donn Camara Self - patient is the insured [employer] [address] [place] [address] [id number] Donn Camara Self - patient is the insured Medical (General) History Medical History History ICD Code Chicken pox Cholesterol Broken bones Headaches/Migraines chronic sinusitis Joint dysfunction Joint implants/screws covid-19 Surgical History Surgery Date(Month/Year) knee surgery, left 2009 knee surgery, right 1998 hand/wrist 2001
--- OUTSIDE RECORDS SUMMARY | 2025-04-06 18:46 | XMS_ITS | Patient Health Record ---
Author Organization [facility] Address [address] [place] [address] Care Team Providers Care Content Developer Name Role Phone GILDARDO BE PA-C Primary Care Provider Marbin Robertson [phone] Allergies Allergen (clinical drug ingredient) Drug/Non Drug [...] Problem Screening for malignant neoplasm of colon (439981993) Encounter for screening for malignant neoplasm of colon (Z12.11) Active confirmed Problem Preprocedural examination (442215138340154) Preprocedural examination (Z01.818) Active confirmed Problem Long-term current use of aspirin (627182777655168) Aspirin long-term use (Z79.82) Active confirmed Problem Family History of Cancer of Colon (Situation) (235749457) Family history of colon cancer (Z80.0) Active confirmed Plan Of Treatment Future Test Test Name Order Date COLONOSCOPY 08/02/2014 COLONOSCOPY 02/29/2020 Next Appt Details Provider Name:Marbin Garcia , 05/11/2025 03:20:00 PM, [address] [place] [address], [address], [place], [address], Insurance Providers Payer Name Payer Address Payer Phone Subscriber Number Group Number Insured Name Patient Relationship to Insured Coverage Start Date Coverage End Date MEDICARE OF [place] [address] [place] [address] [id number] LUZ MARINA SAUNDERS Self - patient is the insured [employer] CLAIMS [address] [place] [phone] [id number] LUZ MARINA SAUNDERS Self - patient is the insured Medical (General) History Medical History History ICD Code 03/24/2009 and 2004--negativ e colonoscopies except for diverticulosis and internal hemorrhoids; neg. colonoscopy in 09/2014 Denies MD,DM,CVA,Lung disease,renal dise ase Seasonal allergies Hyperlipidemia Surgical History Surgery Date(Month/Year) Knee surgery-both Carpal Tunnel surgery-bilateral Lower back surgery--Dr. Lang at [facility] 2018
== END 2025-04-06 14:04 | disposition home or self-care (01) ==
LOC: HO.HMGAL 14:03
PROVIDERS: PCP Internal Medicine; Visit Provider Registered Nurse Emergency
DX: J30.89 Other allergic rhinitis (principal)
CPT/HCPCS: 95117; 95165